=== PATIENT | female | born 1940 | race Caucasian/White ===

== ENCOUNTER 2018-08-13 09:18 | Emergency (ER) | payer MEDICARE, SELFPAY ==
[2018-08-13 09:26] VITALS: BP 159/75; PULSE 99; RESP 15; TEMP 36.4; O2SAT 100; BMI 28.8
--- NOTE | 2018-08-13 10:36 | DI.RAD.S_ITS ---
PROCEDURE: XR KNEE RT 3V INDICATIONS: pain TECHNIQUE: 3 views of the knee were acquired. COMPARISON: Former[facility], CR, XR HIP W PEL IF DONE RT 2V, 08/13/2018, 10:17. [facility], MR, KNEE WITHOUT CONTRAST, 06/21/2013, 8:40. [facility], CR, KNEE 3V LEFT, 06/13/2013, 14:20. FINDINGS: Bones: No fractures or dislocations. No suspicious bony lesions. There is mild medial femorotibial joint space narrowing seen, with associated remodeling changes including subchondral sclerosis and osteophyte formation along the jointline. On the sunrise view, there is moderate lateral patellofemoral joint space narrowing seen. Osteophyte formation can be seen along the margins of the patella. Soft tissues: No joint effusion. No suspicious soft tissue calcifications. IMPRESSION: Age-appropriate degenerative changes are seen, without an acute bony abnormality identified. Dictated by: Manjeet Ferris M.D. on 08/13/2018 at 9:56 Approved by: Manjeet Ferris M.D. on 08/13/2018 at 9:57
--- NOTE | 2018-08-13 10:36 | DI.RAD.S_ITS ---
PROCEDURE: XR HIP W PEL IF DONE RT 2V INDICATIONS: pain no inury TECHNIQUE: AP pelvis with lateral view(s) of the right hip(s). COMPARISON: [facility], CT, ABDOMEN/PELVIS WITH CONTRAST, 02/02/2016, 11:58. [facility], CR, PELVIS 1 OR 2 VIEWS, 05/03/2016, 9:30. [facility], CR, XR KNEE RT 3V, 08/13/2018, 10:17. FINDINGS: Bones: No fractures or dislocations. Pelvic ring appears intact. No suspicious bony lesions. There is moderate superior joint space narrowing seen of both hips, with associated remodeling changes with subchondral sclerosis and osteophyte formation. Age-appropriate lower lumbar spine degenerative changes are noted. Soft tissues: The visualized bowel gas pattern is normal. No suspicious soft tissue calcifications. IMPRESSION: Moderate degenerative change can be seen involving both hips. Dictated by: Manjeet Ferris M.D. on 08/13/2018 at 9:57 Approved by: Manjeet Ferris M.D. on 08/13/2018 at 9:59
--- NOTE | 2018-08-13 10:43 | ED.LOWEXIN ---
HPI - Extremity Injury (Lower) General Chief Complaint: Extremity Injury, Lower Stated Complaint: Right leg pain Time Seen by Provider: 08/13/18 09:41 Source: patient Mode of arrival: ambulatory Limitations: no limitations History of Present Illness HPI Narrative: Patient is a 78-year-old female who presents with sudden onset right knee pain. She was walking when she suddenly felt her knee had pain behind. She also has some referred pain in her hip she is unable to stand. She did not fall. She has no calf pain no shortness of breath. She has no recent traveling. She denies numbness or tingling. complaint: hip injury and knee injury Related Data Home Medications Medication Instructions Recorded Confirmed hydrocodone-acetaminophen 1 tab PO PRN PRN 08/13/18 08/13/18 levothyroxine 1 tab PO DAILY 08/13/18 08/13/18 Allergies Allergy/AdvReac Type Severity Reaction Status Date / Time naproxen [From ALEVE] Allergy Severe hives, Verified 08/13/18 09:26 throat swelling meperidine [From Demerol] Allergy Verified 08/13/18 09:26 Review of Systems Review of Systems All systems reviewed & are unremarkable except as noted in HPI and below Constitutional Denies chills, Denies fever(s), Denies lethargy and Denies weakness Cardiovascular Denies chest pain, Denies irregular heart rhythm, Denies lightheadedness, Denies palpitations, Denies dyspnea, Denies dyspnea on exertion and Denies orthopnea Respiratory Denies cough, Denies dyspnea, Denies dyspnea on exertion and Denies wheezing Gastrointestinal Gastrointestinal: Denies abdominal pain, Denies change in bowel habits, Denies diarrhea, Denies nausea and Denies vomiting Musculoskeletal Reports as per HPI and Denies tingling Integumentary/Breasts Denies pruritus, Denies erythema, Denies rash and Denies wounds Neurologic Denies tingling, Denies paresthesias and Denies weakness Endocrine Denies palpitations Allergic/Immunologic Denies wheezing Exam Initial Vital Signs Initial Vital Signs: Vital Signs Temperature 97.6 F 08/13/18 09:26 Pulse Rate 99 H 08/13/18 09:26 Respiratory Rate 15 08/13/18 09:26 Blood Pressure 159/75 H 08/13/18 09:26 Pulse Oximetry 100 08/13/18 09:26 GENERAL: Well-appearing, well-nourished and in no acute distress. HEENT: Head atraumatic,EOMI, pupils reactive CARDIOVASCULAR: Regular rate and rhythm without murmurs, rubs or gallops. RESPIRATORY: Breath sounds equal bilaterally, no wheezes rales or rhonchi. EXTREMITIES: Normal range of motion, no clubbing or edema. Neurovascularly intact Right knee minimal swelling stable exam slight pain in hip with internal and external rotation peripheral pulses intact no erythema neurovascularly intact NEUROLOGICAL: Alert and oriented x4.Normal gait and speech. SKIN: Warm, dry, no laceration, no petechiae, no rashes or lesions. Course Orders Ordered: ED Orders 08/13/18 10:36 XR hip w pel if done RT 2V Stat XR knee RT 3V Stat Vital Signs - 8 hr 08/13/18 09:26 08/13/18 11:59 Temperature 97.6 F Pulse Rate 99 H 88 Respiratory Rate 15 14 Blood Pressure 159/75 H 151/77 H Pulse Oximetry 100 98 MDM - Extremity Injury (Lower) Imaging Data hip XR: Radiologist's impression: PROCEDURE: XR HIP W PEL IF DONE RT 2V INDICATIONS: pain no inury TECHNIQUE: AP pelvis with lateral view(s) of the right hip(s). COMPARISON: [facility], CT, ABDOMEN/PELVIS WITH CONTRAST, 02/02/2016, 11:58. [facility], CR, PELVIS 1 OR 2 VIEWS, 05/03/2016, 9:30. [facility], CR, XR KNEE RT 3V, 08/13/2018, 10:17. FINDINGS: Bones: No fractures or dislocations. Pelvic ring appears intact. No suspicious bony lesions. There is moderate superior joint space narrowing seen of both hips, with associated remodeling changes with subchondral sclerosis and osteophyte formation. Age-appropriate lower lumbar spine degenerative changes are noted. Soft tissues: The visualized bowel gas pattern is normal. No suspicious soft tissue calcifications. IMPRESSION: Moderate degenerative change can be seen involving both hips. Dictated by: Manjeet Ferris M.D. on 08/13/2018 at 9:57 Knee XR: Radiologist's impression: PROCEDURE: XR KNEE RT 3V INDICATIONS: pain TECHNIQUE: 3 views of the knee were acquired. COMPARISON: [facility], CR, XR HIP W PEL IF DONE RT 2V, 08/13/2018, 10:17. [facility], MR, KNEE WITHOUT CONTRAST, 06/21/2013, 8:40. [facility], CR, KNEE 3V LEFT, 06/13/2013, 14:20. FINDINGS: Bones: No fractures or dislocations. No suspicious bony lesions. There is mild medial femorotibial joint space narrowing seen, with associated remodeling changes including subchondral sclerosis and osteophyte formation along the jointline. On the sunrise view, there is moderate lateral patellofemoral joint space narrowing seen. Osteophyte formation can be seen along the margins of the patella. Soft tissues: No joint effusion. No suspicious soft tissue calcifications. IMPRESSION: Age-appropriate degenerative changes are seen, without an acute bony abnormality identified. Dictated by: Manjeet Ferris M.D. on 08/13/2018 at 9:56 MDM Narrative Medical decision making narrative: Sudden onset of pain while walking likely a sprain. She is given knee brace which does help her ambulate. Discharge Plan Departure Patient Disposition: Home Clinical Impression: Right knee sprain Discharge Date/Time: 08/13/18 11:40 Interventions: ED Discharge Assessment Last Done: 08/13/18 11:59 Instructions: DI for Knee Sprain Activity Restrictions/Additional Instructions: *You have been diagnosed with right knee sprain *What to do: X-ray today are negative, wear brace as needed use a cane or crutches if needed for walking *Continue to take medications as directed Tylenol and/or Motrin as needed for pain *Follow up with your primary care provider in 2-3 days *Return to ER if you should have increased pain, numbness, tingling, inability to walk or any new, worsening or concerning symptoms Prescriptions: No Action hydrocodone-acetaminophen 5-325 mg tablet 1 tab PO PRN PRN (Reason: Pain, Moderate) RF: 0 levothyroxine 100 mcg tablet 1 tab PO DAILY RF: 0 Referrals: Fabrice Green MD [Primary Care Provider] -
[2018-08-13 11:59] VITALS: BP 151/77; PULSE 88; RESP 14; O2SAT 98
== END 2018-08-13 11:40 | disposition home or self-care (01) ==
PROVIDERS: Emergency Provider Emergency Medicine; Family Provider Family Medicine; PCP Family Medicine
DX: S83.91XA Sprain of unspecified site of right knee, initial encounter (principal); Y93.01 Activity, walking, marching and hiking
CPT/HCPCS: 73502; 73562; 99283

== ENCOUNTER → 2018-08-21 11:32 | Outpatient (CLI) | payer MEDICARE, SELFPAY ==
--- NOTE | 2018-08-21 | DI.MRI.S_ITS ---
PROCEDURE: MR KNEE RT WO CON INDICATIONS: PAIN IN RIGHT KNEE TECHNIQUE: Noncontrast sagittal PD fast spin echo and T2 fast spin echo with fat saturation, sagittal 3-D FLASH with fat saturation; coronal T1 spin echo and PD fast spin echo with fat saturation, and axial PD fast spin echo with fat saturation through the knee. COMPARISON: [facility], CR, XR KNEE RT 3V, 08/13/2018, 10:17. FINDINGS: Image quality: Diagnostic. Bones and joint: There is no acute fracture or dislocation. No suspicious osseous lesions are evident. The there is a small joint effusion. A moderate-sized Sevilla's cyst is identified, containing small interarticular joint bodies/debris. Mild to moderate degenerative changes of the knee are identified demonstrating small developing marginal osteophytes. There is moderate irregularity of the hyaline articular cartilage within the patellofemoral compartment but there is a degenerative/reactive marrow change. The hyaline articular cartilage within the medial and lateral tibiofemoral compartments is also noted to be heterogeneous, but intact. Cruciate ligaments: Anterior cruciate ligament is intact. The posterior cruciate ligament is also noted to be intact. Menisci: There is an oblique tear identified involving the body and posterior horn of the medial meniscus that extends into the inferior articular surface. The posterior meniscal root appears to be intact. There also is an oblique tear extending onto the inferior articular surface that involves the junction of the body and posterior horn of the medial meniscus. This transitions to a tear involving the free edge of the body of the medial meniscus and subsequently a probable oblique tear that involves the femoral articular surface to the anterior horn of the lateral meniscus. Medial structures: The medial collateral ligament is intact. The semimembranosus tendon insertion is intact. The imaged portions of the pes anserinus tendons are unremarkable. No significant fluid is contained within the pes anserinus bursa. Thickening and heterogeneity of the lateral patellofemoral ligament is present. Lateral structures: The popliteal tendon is intact. The lateral collateral ligament proper (fibular collateral ligament) and the proximal tibiofibular ligaments are intact. However, there may be partial thickness tearing involving the lateral collateral ligament. The distal aspect of the biceps femoris tendon and the iliotibial band are intact. The lateral patellofemoral ligament appears to be thickened. There is edema overlying this ligament. Anterior structures: The quadriceps and patellar tendons are intact. However, there is thickening and increased signal identified involving the lateral aspect of the proximal patellar tendon. Extensive subcutaneous edema overlying the anterior margin of the knee is resent with prepatellar edema noted. IMPRESSION: 1. Mild to moderate degenerative changes of the knee are most pronounced within the patellofemoral compartment. 2. Mild to moderate proximal patellar tendinopathy. Given positioning of the proximal patellar tendon, please correlate clinically for the possibility of lateral femoral condyle-patellar tendon friction syndrome. 3. Probable scarring of the medial and lateral patellofemoral ligaments. 4. Small to moderate-sized knee joint effusion with an associated Sevilla's cyst, containing intra-articular joint bodies. 5. Complex, nondisplaced tears involving the medial and lateral menisci. 6. Partial-thickness tearing involving the proximal lateral patellofemoral ligament. Dictated by: Braulio Hanley M.D. on 08/21/2018 at 15:01 Approved by: Braulio Hanley M.D. on 08/21/2018 at 15:12
== END ==
PROVIDERS: PCP Family Medicine; Visit Provider Orthopaedic Surgery
DX: S83.271A Complex tear of lateral meniscus, current injury, right knee, initial encounter (principal); S83.231A Complex tear of medial meniscus, current injury, right knee, initial encounter; M25.561 Pain in right knee; M17.11 Unilateral primary osteoarthritis, right knee; M25.461 Effusion, right knee; M71.21 Synovial cyst of popliteal space [Baker], right knee
CPT/HCPCS: 73721

== ENCOUNTER → 2019-04-04 11:12 | Oncology outpatient (ONC) | payer MEDICARE, SELFPAY ==
[2019-04-04 11:31] VITALS: BP 134/88; PULSE 83; RESP 18; TEMP 36.8; O2SAT 98
== END ==
LOC: ONC 11:14
PROVIDERS: PCP Family Medicine; Visit Provider Internal Medicine Hematology & Oncology
DX: Z08 Encounter for follow-up examination after completed treatment for malignant neoplasm (principal)

== ENCOUNTER → 2019-05-03 08:48 | Outpatient (CLI) | payer MEDICARE, SELFPAY ==
--- NOTE | 2019-05-03 | DI.MG.S_ITS ---
BILATERAL DIGITAL SCREENING MAMMOGRAM 3D/2D WITH CAD: 05/03/2019 CLINICAL: Routine screening. Family history of breast cancer. Comparison is made to exams dated: 04/12/2018 mammogram, 03/23/2018 mammogram, and 03/02/2017 mammogram - [facility]. The tissue of both breasts is heterogeneously dense. This may lower the sensitivity of mammography. Current study was also evaluated with a Computer Aided Detection (CAD) system. No significant masses, calcifications, or other findings are seen in either breast. There has been no significant interval change. IMPRESSION: NEGATIVE There is no mammographic evidence of malignancy. A 1 year screening mammogram is recommended. This exam was interpreted at Station ID: [id number]. NOTE: For mammograms, a report in lay terms will be sent to the patient. Approximately 15% of breast malignancies will not be visualized mammographically. In the management of a palpable breast mass, a negative mammogram must not discourage biopsy of a clinically suspicious lesion. Electronically Signed By: John turk/yony:05/03/2019 17:36:32 letter sent: Normal Exam ACR BI-RADS Category 1: Negative [id number]
== END ==
PROVIDERS: PCP Family Medicine; Visit Provider Family Medicine
DX: Z12.31 Encounter for screening mammogram for malignant neoplasm of breast (principal); Z80.3 Family history of malignant neoplasm of breast
CPT/HCPCS: 77063; 77067

== ENCOUNTER → 2019-07-11 06:35 | Outpatient (CLI) | payer MEDICARE, SELFPAY ==
--- NOTE | 2019-07-11 | DI.CT.S_ITS ---
PROCEDURE: CT ABDOMEN PELVIS WO/W CON INDICATIONS: HEMATURIA TECHNIQUE: Optional 5 mm thick noncontrast images acquired from the diaphragm to the symphysis pubis. After the administration of intravenous contrast, 5 mm thick images acquired from the diaphragm to the symphysis pubis after a 10-minute delay. 2 mm thick coronal and sagittal reformats were then performed of the kidneys and ureters. For radiation dose reduction, the following was used: automated exposure control, adjustment of mA and/or kV according to patient size. COMPARISON: CT abdomen and pelvis with contrast 02/02/2016. FINDINGS: Image quality: Excellent. Lung bases: Lung bases are clear. Heart size is normal. Urinary system: Both kidneys are normal in size, without hydronephrosis or nephrolithiasis on pre-contrast images. No perinephric fat stranding. There is normal bilateral renal enhancement. Small simple cyst at the superior pole the left kidney measuring 1.9 cm. Small left peripelvic cyst. Renal calyces appear normal in morphology when filled with contrast. Opacified portions of both ureters demonstrate normal caliber. Bladder wall thickness appears normal. Small calcifications in the superior aspect of the urinary bladder wall, (8/113), have increased in number. No filling defects seen. No calcified bladder stones. Other solid organs: Liver is normal in size and enhancement. Gallbladder is unremarkable. Biliary system is non dilated. Pancreas enhances normally. Spleen is mildly enlarged measuring 14.2 cm in craniocaudal length, previously 12.9 cm on 01/31/2016. A few punctate calcific granuloma in the spleen. No adrenal nodules. Peritoneum and bowel: Bowel loops demonstrate normal wall thickness and caliber. Mild colonic diverticulosis. No free fluid or air. Nodes and vessels: No retroperitoneal or mesenteric adenopathy by size criteria. Aorta and inferior vena cava are normal in size. Abdominal wall: No ventral hernias. Pelvis: No pathologic free pelvic fluid. No inguinal hernias or adenopathy. Bones: No suspicious bony lesions. No vertebral body compression fractures. IMPRESSION: 1. No suspicious renal mass. No upper urinary tract filling defect. 2. Increased number of calcifications in the superior aspect of the urinary bladder wall compared to 2016. No discrete mass identified. Further evaluation with cystoscopy should be considered. 3. No nephrolithiasis. Dictated by: Omero Agudelo M.D. on 07/11/2019 at 11:39 Approved by: Omero Agudelo M.D. on 07/11/2019 at 11:51
== END ==
PROVIDERS: Visit Provider Student in an Organized Health Care Education/Training Program
DX: R31.9 Hematuria, unspecified (principal)
CPT/HCPCS: 74170; Q9967

== ENCOUNTER 2019-09-18 16:51 | Emergency (ER) | payer MEDICARE, SELFPAY ==
[2019-09-18 17:00] VITALS: BP 177/81; PULSE 95; RESP 17; TEMP 36.9; O2SAT 98
--- NOTE | 2019-09-18 17:11 | DI.CT.S_ITS ---
PROCEDURE: CT HEAD/BRAIN WO CON INDICATIONS: headache, hypertension TECHNIQUE: Noncontrast 4.5 mm thick angled axial sections acquired from the foramen magnum to the vertex, with coronal and sagittal reformats. For radiation dose reduction, the following was used: automated exposure control, adjustment of mA and/or kV according to patient size. COMPARISON: None. FINDINGS: Image quality: Excellent. CSF spaces: Basal cisterns are patent. No extra-axial fluid collections. The ventricles are symmetric in size and shape. Brain: No intracranial bleeds or masses. There is cerebral volume loss for age, with resultant ventricular and sulcal prominence. There are periventricular and deep white matter chronic small vessel ischemic changes. Focal lacunar infarct in the left caudate head, bilateral thalami, and right caudal basal ganglia. There is intracranial internal carotid artery atherosclerosis. Skull and face: Calvarium and visualized facial bones appear intact, without suspicious lesions. Sinuses: Visualized sinuses and mastoids are clear. IMPRESSION: 1. No CT evidence of acute intracranial hemorrhage. 2. 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 Dictated by: Samantha Tomlinson M.D. on 09/18/2019 at 18:09 Approved by: Samantha Tomlinson M.D. on 09/18/2019 at 18:11
--- NOTE | 2019-09-18 18:35 | ED_ITS ---
HPI - General Adult General Chief complaint: Hypertension Stated complaint: SENT FOR BRAIN SCAN Time Seen by Provider: 09/18/19 18:05 Source: patient Mode of arrival: Ambulatory Limitations: no limitations History of Present Illness HPI narrative: 79-year-old female sent over from her primary doctor's office for a head CT. Patient states that for the past 4 days she has had a left-sided headache that goes from the top of her head down to the back of her head. States that it happens at night. It does appear to be somewhat positional as the patient states that it is when she turns her head that the symptoms come on. There is also some concern that the patient's blood pressure has been elevated over the past 4 days. Patient states she occasionally takes her blood pressure at home and the systolic blood pressure normally runs in the 130 range. Over the past 4 days it has been in the 160s to 170 range. She denies any chest pain or shortness of breath. She also describes a room spinning sensation. This also appears to be positional. Patient denies any ear pain or tinnitus or sinus congestion. She states that when she gets this ?dizziness? she does have some blurry vision that resolves. Related Data Home Medications Medication Instructions Recorded Confirmed hydrocodone-acetaminophen 1 tab PO PRN PRN 08/13/18 09/18/19 levothyroxine 1 tab PO DAILY 08/13/18 09/18/19 Previous Rx's Medication Instructions Recorded meclizine 25 mg PO TID PRN #14 tab 09/18/19 Allergies Allergy/AdvReac Type Severity Reaction Status Date / Time naproxen [From ALEVE] Allergy Severe hives, Verified 11/18/18 11:10 throat swelling meperidine [From Demerol] Allergy Verified 11/18/18 11:10 Review of Systems Constitutional Constitutional: Denies fever(s), Denies frequent falls and Reports headache(s) Eyes Eyes: Denies loss of vision Comments: Blurry vision when she has dizziness ENT Ears, Nose, Mouth, and Throat: Reports vertigo, Reports dizziness, Reports headache(s), Denies neck pain, Reports disequilibrium, Denies sinus pressure and Denies sore throat Cardiovascular Cardiovascular: Denies chest pain and Denies dyspnea Respiratory Respiratory: Denies cough and Denies dyspnea Gastrointestinal Gastrointestinal: Denies abdominal pain, Denies nausea and Denies vomiting Genitourinary Genitourinary: Denies dysuria Musculoskeletal Musculoskeletal: Denies abnormal gait, Denies myalgias, Denies arthralgias, Denies neck pain and Denies tingling Integumentary/Breasts Skin/Breast: Denies rash Neurologic Neurologic: Denies abnormal speech, Denies abnormal gait, Denies behavioral changes, Denies burning sensations, Denies confusion, Reports vertigo, Reports dizziness, Denies frequent falls, Reports headache(s), Denies focal weakness, Denies loss of vision, Denies tingling and Reports disequilibrium Psychiatric Psychiatric: Denies anxiety, Denies behavioral changes and Denies confusion Hematologic/Lymphatic Hematologic/Lymphatic: Denies easy bleeding and Denies easy bruising Patient History Medical History Hypothyroid (Acute) Social History Smoking Status: Former smoker alcohol intake frequency: 0-2 drinks per day Substance Use Type: does not use Exam Initial Vital Signs Initial Vital Signs: Vital Signs Temperature 98.4 F 09/18/19 17:00 Pulse Rate 95 H 09/18/19 17:00 Respiratory Rate 17 09/18/19 17:00 Blood Pressure 177/81 H 09/18/19 17:00 Pulse Oximetry 98 09/18/19 17:00 Const General: cooperative, comfortable, well developed and well groomed Orientation: alert, awake and oriented x3 HENMT Head: normal to inspection and normocephalic Ears: TM's normal bilaterally Nose: external nose normal Face and sinus: normal facial exam Eyes Pupils: PERRL EOM: EOM intact bilaterally Resp Effort & Inspection: normal respiratory effort Auscultation: clear to auscultation bilaterally Cardio Rate: regular rate Rhythm: regular rhythm GI Inspection: non-distended Palpation: soft and No firm Skin Lesions: no lesions Rashes: no rashes Neuro General: alert, awake and oriented x3 Cranial Nerves: CN's II-XI intact bilaterally Cognition: normal cognition Speech: speech normal Gait: normal gait Motor: muscle tone normal throughout Extrem General: normal to inspection and capillary refill normal Psych Appearance: grossly normal and well kempt Course Orders Ordered: ED Orders 09/18/19 17:11 CT head/brain wo con Stat Vital Signs Vital signs: Vital Signs - 8 hr 09/18/19 18:36 Pulse Rate 90 Respiratory Rate 19 Blood Pressure [Right Arm] 142/90 H Pulse Oximetry 97 Medical Decision Making Imaging Data CT scan - head: Radiologist's impression: [address] [address] [address] Scan Report Signed Patient: Angelita Amaya AMR#: [id number] : 2Acct:[id number] Age/Sex: 79 / FDate of Service: 09/18/19 Loc: ED Accession Number: [id number] Procedure: CT head/brain wo con Ordering Provider: Ana Schafer D.O. PROCEDURE: CT HEAD/BRAIN WO CON INDICATIONS: headache, hypertension TECHNIQUE: Noncontrast 4.5 mm thick angled axial sections acquired from the foramen magnum to the vertex, with coronal and sagittal reformats. For radiation dose reduction, the following was used: automated exposure control, adjustment of mA and/or kV according to patient size. COMPARISON: None. FINDINGS: Image quality: Excellent. CSF spaces: Basal cisterns are patent. No extra-axial fluid collections. The ventricles are symmetric in size and shape. Brain: No intracranial bleeds or masses. There is cerebral volume loss for age, with resultant ventricular and sulcal prominence. There are periventricular and deep white matter chronic small vessel ischemic changes. Focal lacunar infarct in the left caudate head, bilateral thalami, and right caudal basal ganglia. There is intracranial internal carotid artery atherosclerosis. Skull and face: Calvarium and visualized facial bones appear intact, without suspicious lesions. Sinuses: Visualized sinuses and mastoids are clear. IMPRESSION: 1. No CT evidence of acute intracranial hemorrhage. 2. 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 Dictated by: Samantha Tomlinson M.D. on 09/18/2019 at 18:09 Approved by: Samantha Tomlinson M.D. on 09/18/2019 at 18:11 ECG Data Attestation: I personally reviewed and interpreted this ECG as follows: Prior ECG tracings: not available for review Interpretation: Sinus rhythm Ventricular rate of 91 Left axis deviation Normal QRS Normal QTC No ST T wave changes MDM Narrative Medical decision making narrative: Patient is a normal neurologic exam. Her head CT shows no acute changes. EKG is a left axis deviation. She denies any chest pain or palpitations. I have low suspicion for intracranial hemorrhage given her symptoms. She does have what appears to be vertigo. She states that she can reproduce the symptoms by looking up into the right. She did that here in the emergency department. I do suspect that this is a peripheral vertigo given her history and physical exam. Will send home with symptom treatment for this. She is instructed to continue to take her blood pressure at home and to talk with her primary provider about the need for any medications. She was given return precautions. She expressed understanding and agreement with plan.. Discharge Plan Departure Patient Disposition: Home Clinical Impression: Vertigo Hypertension Qualifiers: Hypertension type: unspecified Qualified Code(s): I10 - Essential (primary) hypertension Headache Qualifiers: Headache type: unspecified Headache chronicity pattern: unspecified pattern Intractability: not intractable Qualified Code(s): R51 - Headache Discharge Date/Time: 09/18/19 18:46 Instructions: DI for High Blood Pressure, DI for Vertigo Activity Restrictions/Additional Instructions: I recommend that you start taking a antihistamine such as Claritin or Diandra or Zyrtec like we discussed. Use the meclizine as directed as needed. Continue to take your blood pressures at home like we discussed. Contact your primary virgilio storm for follow-up. Return to the emergency department for any new or worsening symptoms Prescriptions: New meclizine 25 mg tablet 25 mg PO TID PRN (Reason: dizziness) Qty: 14 RF: 0 No Action hydrocodone-acetaminophen 5-325 mg tablet 1 tab PO PRN PRN (Reason: Pain, Moderate) RF: 0 levothyroxine 100 mcg tablet 1 tab PO DAILY RF: 0 Referrals: Apple Stern MD [Primary Care Provider] -
[2019-09-18 18:36] VITALS: BP 142/90; PULSE 90; RESP 19; O2SAT 97
== END 2019-09-18 18:46 | disposition home or self-care (01) ==
PROVIDERS: Emergency Provider Emergency Medicine; Family Provider Student in an Organized Health Care Education/Training Program; PCP Student in an Organized Health Care Education/Training Program
DX: R42 Dizziness and giddiness (principal); I10 Essential (primary) hypertension; R51 Headache
CPT/HCPCS: 36415; 70450; 93005; 93010; 99282; 99284

== ENCOUNTER 2020-08-29 09:20 | Emergency (ER) | payer MEDICARE, SELFPAY ==
[2020-08-29 09:27] VITALS: BP 164/77; PULSE 90; RESP 14; TEMP 36.6; O2SAT 99
--- NOTE | 2020-08-29 10:06 | ED_ITS ---
HPI - Back Pain/Injury General Chief Complaint: Back Pain/Injury Stated Complaint: rt back/side pain Time Seen by Provider: 08/29/20 10:06 Source: patient and family Limitations: no limitations History of Present Illness HPI Narrative: This is a 72-year-old female comes emergency department with complaint of right flank and radiating towards the front she describes it more as upper right abdomen but on palpation it is more right lower abdomen. Patient also has pain radiating down her right leg for the last 3 weeks as well as numbness and tingling. She states she has had some back issues in the past but this feels like a different location and more internal. She has not had fevers, she has not had any vomiting but has felt nauseated today. She has not had any diarrhea constipation last several days but had loose stools about a week ago. She denies any frequency, dysuria urgency. She denies any weakness in her lower extremities. She denies any midline back pain. Patient states that she takes levothyroxine for her thyroid and rare occasional Vicodin for her back. She has had hysterectomy and states that they also removed her appendix at that time. Patient states that she has not had kidney stones in the past, she does not think that this is slowly her back pain. She is allergic to Aleve and states that she turns red all over. She denies any tobacco, occasional alcohol, no illicit. She is accompanied by her daughter today. Related Data Home Medications Medication Instructions Recorded Confirmed hydrocodone-acetaminophen 1 tab PO PRN PRN 08/13/18 08/29/20 levothyroxine 1 tab PO DAILY 08/13/18 09/18/19 ibuprofen 800 mg PO TID PRN 08/29/20 08/29/20 Previous Rx's Medication Instructions Recorded cyclobenzaprine 10 mg PO Q8H #14 tab 08/29/20 hydrocodone-acetaminophen [[place]] 1 tab PO Q6H PRN #10 tab 08/29/20 Allergies Allergy/AdvReac Type Severity Reaction Status Date / Time naproxen [From ALEVE] Allergy Severe hives, Verified 08/29/20 09:31 throat swelling meperidine [From Demerol] Allergy Verified 08/29/20 09:31 Review of Systems Review of Systems ROS Unobtainable: All systems reviewed & are unremarkable except as noted in HPI and below Patient History Medical History (Updated 08/29/20 @ 12:44 by Ana Schafer DO) Hypothyroid (Acute) Surgical History (Updated 08/29/20 @ 10:36 by Ana Schafer DO) H/O: hysterectomy (Acute) Social History Smoking Status: Former smoker Smoking Status: Former smoker alcohol intake frequency: 0-2 drinks per day Substance Use Type: does not use Exam Narrative Exam Narrative: GENERAL: Alert and oriented x three, obese, well-appearing female in moderate distress HEENT: Head normocephalic, atraumatic, EOMI, pupils reactive, face symmetric, moist mucous membranes NECK: Supple, full range of motion CARDIOVASCULAR: Regular rate and rhythm without murmurs, rubs or gallops. RESPIRATORY: Breath sounds equal bilaterally, no wheezes rales or rhonchi. ABDOMEN: Soft, positive for right lower quadrant tenderness. Patient is not p articularly tender in the right upper quadrant or left side. Normoactive bowel sounds all 4 quadrants. No guarding or rebound, rigidity, no mass : No CVA tenderness BACK: No cervical, thoracic or lumbar vertebral point tenderness. Patient has normal range of motion. Patient's gait is [antalgic/normal]. Rectal exam is deferred. Muscle strength is 5/5 in lower extremities, DTRs are 2/4 and lower extremities. Dorsalis pedis and tibialis pulses are 2+ and lower extremities. Sensation is intact in the lower extremities. EXTREMITIES: Normal range of motion, no clubbing or edema. Neurovascularly intact NEUROLOGICAL: Cranial nerves II through XII grossly intact. Moving all extremities SKIN: Warm, dry, no petechiae, no rashes or lesions. Initial Vital Signs Initial Vital Signs: Vital Signs Temperature 97.9 F 08/29/20 09:27 Pulse Rate 90 08/29/20 09:27 Respiratory Rate 14 08/29/20 09:27 Blood Pressure 164/77 H 08/29/20 09:27 Pulse Oximetry 99 08/29/20 09:27 Course Orders Ordered: ED Orders 08/29/20 10:33 CT abdomen pelvis w con Stat 08/29/20 10:40 Complete Blood Count AUTO DIFF Stat Comprehensive Metabolic Panel Stat Lipase Stat Discontinued Medications Sodium Chloride (Normal Saline 0.9%) 1,000 mls @ 1,000 mls/hr IV BOLUS ONE Stop: 08/29/20 11:32 Last Infusion: 08/29/20 12:57 Dose: 0 mls/hr Documented by: Admin: 08/29/20 10:43 Dose: 1,000 mls/hr Documented by: LEV Morphine Sulfate (Morphine) 4 mg IV NOW ONE Stop: 08/29/20 10:34 Last Admin: 08/29/20 10:43 Dose: 4 mg Documented by: LEV Morphine Sulfate (Morphine) 4 mg IV NOW ONE Stop: 08/29/20 12:39 Vital Signs Vital signs: Vital Signs - 8 hr 08/29/20 11:25 08/29/20 11:26 08/29/20 11:30 Pulse Rate 102 H 99 H 76 Blood Pressure 167/74 H 154/58 H Pulse Oximetry 98 99 99 08/29/20 12:57 Pulse Rate 95 H Blood Pressure 157/86 H Pulse Oximetry 97 MDM - Back Pain/Injury Lab Data Attestation: I reviewed the patient's lab results. Result diagrams: 08/29/20 10:40 08/29/20 10:40 Labs: Lab Results 08/29/20 08/29/20 Range/Units 10:40 10:40 WBC 8.5 (4.5-11.0) X10^3/uL RBC 4.42 (4.0-5.2) X10^6/uL Hgb 14.2 (12.0-16.0) g/dL Hct 41.3 (36-46) % MCV 93.4 (80-100) fL MCH 32.1 (26-34) PG MCHC 34.4 (30-36) % RDW 13.3 (11.6-14.8) % Plt Count 151 (150-400) X10^3/uL Neut % (Auto) 47.6 L (50-75) % Lymph % (Auto) 44.0 H (25-40) % [place] % (Auto) 6.6 (3-14) % Eos % (Auto) 1.4 L (2-4) % Baso % (Auto) 0.4 (0-2) % Neut # (Auto) 4000 (4607-0801) /uL Lymph # (Auto) 3700 (3793-1218) /uL [place] # (Auto) 600 (0-900) /uL Eos # (Auto) 100 (0-450) /uL Baso # (Auto) 0 (0-100) /uL Sodium 138 (137-145) mmol/L Potassium 4.2 (3.4-5.1) mmol/L Chloride 107 (98-107) mmol/L Carbon Dioxide 28 (22-32) mmol/L BUN 14 (7-17) mg/dL Creatinine 0.61 (0.52-1.04) mg/dL Estimated GFR > 60.0 (>60) mL/min BUN/Creatinine Ratio 23.0 H (6-22) Glucose 96 (80-110) mg/dL Calcium 9.2 (8.4-10.2) mg/dL Total Bilirubin 0.7 (0.2-1.3) mg/dL AST 23 (14-36) IU/L ALT 20 (<35) IU/L Alkaline Phosphatase 73 (38-126) U/L Total Protein 6.6 (6.3-8.2) g/dL Albumin 4.1 (3.5-5.0) g/dL Globulin 2.5 (1.7-4.1) g/dL Albumin/Globulin Ratio 1.6 (1.0-2.8) Lipase 89 (23-300) U/L Urine Dip Bedside Urine Glucose Negative Bedside Urine Bilirubin - Negative Bedside Urine Ketone - Negative Urine Specific [place] 1.010 Bedside Urine Occult Blood - Negative Bedside Urine pH 6.0 Bedside Urine Protein - Negative Bedside Urine Urobilinogen - Negative Bedside Urine Nitrite - Negative Bedside Urine Leukocytes - Negative Esterase Imaging Data CT scan - abdomen/pelvis: Radiologist's Impression: [place] [address] CT Scan Report Signed Patient: Angelita Amaya AMR#: [id number] : 2Acct:[id number] Age/Sex: 80 / FDate of Service: 08/29/20 Loc: ED Accession Number: [id number] Procedure: CT abdomen pelvis w con Ordering Provider: Ana Schafer D.O. PROCEDURE: CT ABDOMEN PELVIS W CON INDICATIONS: RLQ pain w/ palp, r flank/back pain down leg. TECHNIQUE: After the administration of intravenous contrast, 5 mm thick sections acquired from the diaphragm to the symphysis. 5 mm coronal and sagittal reformats were acquired. For radiation dose reduction, the following was used: automated exposure control, adjustment of mA and/or kV according to patient size. COMPARISON: [facility], CT, CT ABDOMEN PELVIS WO/W CON, 07/11/2019, 6:57. [facility], CT, ABDOMEN/PELVIS WITH CONTRAST, 02/02/2016, 11:58. FINDINGS: Image quality: Excellent. ABDOMEN: Lung bases: Lung bases are clear. Heart size is normal. Solid organs: Liver is normal in size and enhancement. Gallbladder wall is not thickened. Biliary system is non dilated. Pancreas enhances normally. The spleen is enlarged, measuring 14 cm AP and 15.6 cm craniocaudal. Calcified granulomas can be seen within the spleen. No adrenal nodules. Kidneys demonstrate normal size and enhancement, without hydronephrosis. A stable hyperdense cyst is seen involving the anterior superior aspect of the left kidney that measures 30 Hounsfield units and 1.5 cm. No hydronephrosis is seen. Peritoneum and bowel: Bowel loops demonstrate normal wall thickness and caliber. No free fluid or air. Colonic diverticulosis is seen, without findings of active diverticulitis. Nodes and vessels: No retroperitoneal or mesenteric adenopathy by size criteria. Aorta and inferior vena cava are normal in size. Miscellaneous: No ventral hernias. PELVIS: Genitourinary: Bladder wall thickness is normal. This patient is status post hysterectomy. No adnexal masses are seen. Miscellaneous: No inguinal hernias or adenopathy. Bones: No suspicious bony lesions. Generalized osteopenia is seen. No vertebral body compression fractures. Mild levoconvex scoliotic curvature is noted. Age- appropriate bony degenerative changes are seen. Minimal anterolisthesis is seen at L4-5. Prominent lumbar facet arthropathy is seen. IMPRESSION: No findings of hydronephrosis or pyelonephritis can be seen. There is a stable hyperdense cyst involving the anterior superior aspect of the left kidney. Lumbar spine degenerative changes are seen, including minimal L4-5 anterolisthesis. Incidental note is made of: Splenomegaly Prior granulomatous exposure. Hysterectomy Diverticulosis, without active diverticulitis Dictated by: Manjeet Ferris M.D. on 08/29/2020 at 10:36 Approved by: Manjeet Ferris M.D. on 08/29/2020 at 10:41 MDM Narrative Medical decision making narrative: Patient comes in with right flank right upper quadrant pain but on palpation is more right lower quadrant. Patient has also been having several weeks of back pain radiating down her leg but based on her physical exam findings I would also evaluate for more internal issues po tentially causing her pain. Labs imaging did not show a clear source of her pain I suspect this may be more related to her back after further discussion. Plan to give patient a short course of pain medication, muscle relaxant have her follow up with primary care and possibly interventional pain as she has stopped working because she has been so uncomfortable for the last several weeks. We did discuss reasons to return, red flag symptoms which patient has not described during her stay here today. Discharge Plan Departure Patient Disposition: Home Clinical Impression: Right low back pain, Right sided abdominal pain Discharge Date/Time: 08/29/20 12:57 Instructions: DI for Low Back Pain Activity Restrictions/Additional Instructions: Follow up with your primary care physician in the next to 5 days for recheck your labs and imaging shows a stable hyperdense cyst on the left kidney that is an unlikely source of your pain as well as some degenerative changes in your spine and an enlarged spleen. You may wish discuss pain management options such as Dr. Ferreira with your primary care. Take pain medications as prescribed, these medications can make you sleepy do not drive, perform hazardous activities or make any decisions while taking them. You may start with taking Tylenol up to a 1000 mg every 8 hours but the pain medications using prescribed have Tylenol seems calculate this into your total 24 hour dose. You should not take more than 3000 mg in a 24 hour period. Return to the ER for fevers, rapidly worsening abdominal or back pain loss of bowel or bladder control, new weakness, loss of sensation in your lower extremity or other new or concerning symptoms. Prescriptions: New hydrocodone-acetaminophen [[place]] 5-325 mg tablet 1 tab PO Q6H PRN (Reason: pain) Qty: 10 RF: 0 cyclobenzaprine 10 mg tablet 10 mg PO Q8H Qty: 14 RF: 0 No Action hydrocodone-acetaminophen 5-325 mg tablet 1 tab PO PRN PRN (Reason: Pain, Moderate) RF: 0 levothyroxine 100 mcg tablet 1 tab PO DAILY RF: 0 ibuprofen 800 mg tablet 800 mg PO TID PRN (Reason: pain / discomfort. ) RF: 0 Referrals: Vivek Putnam DO [Physician] - Apple Stern MD [Primary Care Provider] -
--- NOTE | 2020-08-29 10:33 | DI.CT.S_ITS ---
PROCEDURE: CT ABDOMEN PELVIS W CON INDICATIONS: RLQ pain w/ palp, r flank/back pain down leg. TECHNIQUE: After the administration of intravenous contrast, 5 mm thick sections acquired from the diaphragm to the symphysis. 5 mm coronal and sagittal reformats were acquired. For radiation dose reduction, the following was used: automated exposure control, adjustment of mA and/or kV according to patient size. COMPARISON: [facility], CT, CT ABDOMEN PELVIS WO/W CON, 07/11/2019, 6:57. [facility], CT, ABDOMEN/PELVIS WITH CONTRAST, 02/02/2016, 11:58. FINDINGS: Image quality: Excellent. ABDOMEN: Lung bases: Lung bases are clear. Heart size is normal. Solid organs: Liver is normal in size and enhancement. Gallbladder wall is not thickened. Biliary system is non dilated. Pancreas enhances normally. The spleen is enlarged, measuring 14 cm AP and 15.6 cm craniocaudal. Calcified granulomas can be seen within the spleen. No adrenal nodules. Kidneys demonstrate normal size and enhancement, without hydronephrosis. A stable hyperdense cyst is seen involving the anterior superior aspect of the left kidney that measures 30 Hounsfield units and 1.5 cm. No hydronephrosis is seen. Peritoneum and bowel: Bowel loops demonstrate normal wall thickness and caliber. No free fluid or air. Colonic diverticulosis is seen, without findings of active diverticulitis. Nodes and vessels: No retroperitoneal or mesenteric adenopathy by size criteria. Aorta and inferior vena cava are normal in size. Miscellaneous: No ventral hernias. PELVIS: Genitourinary: Bladder wall thickness is normal. This patient is status post hysterectomy. No adnexal masses are seen. Miscellaneous: No inguinal hernias or adenopathy. Bones: No suspicious bony lesions. Generalized osteopenia is seen. No vertebral body compression fractures. Mild levoconvex scoliotic curvature is noted. Age-appropriate bony degenerative changes are seen. Minimal anterolisthesis is seen at L4-5. Prominent lumbar facet arthropathy is seen. IMPRESSION: No findings of hydronephrosis or pyelonephritis can be seen. There is a stable hyperdense cyst involving the anterior superior aspect of the left kidney. Lumbar spine degenerative changes are seen, including minimal L4-5 anterolisthesis. Incidental note is made of: Splenomegaly Prior granulomatous exposure. Hysterectomy Diverticulosis, without active diverticulitis Dictated by: Manjeet Ferris M.D. on 08/29/2020 at 10:36 Approved by: Manjeet Ferris M.D. on 08/29/2020 at 10:41
[2020-08-29] MEDS: SODIUM CHLORIDE 0.9% 1,000 ML 1000 ML IV (10:43)
[2020-08-29] MEDS: MORPHINE 4 MG/ML INJ IV (10:43)
[2020-08-29 10:51] LABS: Add Manual Diff / Slide Review NO; Basophils Absolute Auto 0 /uL (0-100); Basophils Percent Auto 0.4 % (0-2); Eosinophils Absolute Auto 100 /uL (0-450); Eosinophils Percent Auto 1.4 % (2-4); Hematocrit 41.3 % (36-46); Hemoglobin 14.2 g/dL (12.0-16.0); Lymphocytes Absolute Auto 3700 /uL (1100-4500); Mean Corpuscular HGB Conc 34.4 % (30-36); Mean Corpuscular Hemoglobin 32.1 PG (26-34); Mean Corpuscular Volume 93.4 fL (80-100); Monocytes Absolute Auto 600 /uL (0-900); Monocytes Percent Auto 6.6 % (3-14); Neutrophils Absolute Auto 4000 /uL (1500-7000); Neutrophils Percent Auto 47.6 % (50-75); Platelet Count 151 X10^3/uL (150-400); Red Blood Cell Count 4.42 X10^6/uL (4.0-5.2); Red Cell Distribution Width 13.3 % (11.6-14.8); White Blood Cell Count 8.5 X10^3/uL (4.5-11.0)
[2020-08-29 11:01] LABS: Alanine Aminotransferase 20 IU/L (<35); Albumin 4.1 g/dL (3.5-5.0); Albumin Globulin Ratio 1.6 (1.0-2.8); Alkaline Phosphatase 73 U/L (38-126); Aspartate Aminotransferase 23 IU/L (14-36); Bilirubin Total 0.7 mg/dL (0.2-1.3); Blood Urea Nitrogen 14 mg/dL (7-17); Calcium 9.2 mg/dL (8.4-10.2); Carbon Dioxide 28 mmol/L (22-32); Chloride 107 mmol/L (98-107); Estimated Glomerular Filt Rate > 60.0 mL/min (>60); Globulin 2.5 g/dL (1.7-4.1); Glucose 96 mg/dL (80-110); HEMOLYSIS < 15 (0-50); Lipase 89 U/L (23-300); Potassium 4.2 mmol/L (3.4-5.1); Sodium 138 mmol/L (137-145); Total Protein 6.6 g/dL (6.3-8.2)
[2020-08-29 11:25] VITALS: PULSE 102; O2SAT 98
[2020-08-29 11:26] VITALS: BP 167/74; PULSE 99; O2SAT 99
[2020-08-29 11:30] VITALS: BP 154/58; PULSE 76; O2SAT 99
[2020-08-29 12:57] VITALS: BP 157/86; PULSE 95; O2SAT 97
== END 2020-08-29 12:57 | disposition home or self-care (01) ==
PROVIDERS: Emergency Provider Emergency Medicine; Family Provider Student in an Organized Health Care Education/Training Program; PCP Student in an Organized Health Care Education/Training Program
DX: M54.5 Low back pain (principal); R10.31 Right lower quadrant pain; R10.11 Right upper quadrant pain; R20.0 Anesthesia of skin
CPT/HCPCS: 36415; 74177; 80053; 81003; 83690; 85025; 96361; 96374; 99284; J2270; Q9967

== ENCOUNTER → 2021-04-02 08:18 | Outpatient (CLI) | payer MEDICARE, SELFPAY ==
--- NOTE | 2021-04-02 08:19 | DI.MG.S_ITS ---
BILATERAL DIGITAL SCREENING MAMMOGRAM 3D/2D WITH CAD: 04/02/2021 CLINICAL: Routine screening. Family history of breast cancer. Comparison is made to exams dated: 05/03/2019 mammogram - [facility], 03/23/2018 mammogram, and 03/02/2017 mammogram - [facility]. The tissue of both breasts is heterogeneously dense. This may lower the sensitivity of mammography. Current study was also evaluated with a Computer Aided Detection (CAD) system. There are benign post operative findings in both breasts. There are mole markers on both breasts. No significant masses, calcifications, or other findings are seen in either breast. There has been no significant interval change. IMPRESSION: BENIGN There is no mammographic evidence of malignancy. A 1 year screening mammogram is recommended. This exam was interpreted at Station ID: [id number]. NOTE: For mammograms, a report in lay terms will be sent to the patient. Approximately 15% of breast malignancies will not be visualized mammographically. In the management of a palpable breast mass, a negative mammogram must not discourage biopsy of a clinically suspicious lesion. Electronically Signed By: Martin Blanca acr/penrad:04/02/2021 08:54:21 letter sent: Normal Exam ACR BI-RADS Category 2: Benign Finding(s) 3342F
== END ==
PROVIDERS: Family Provider Student in an Organized Health Care Education/Training Program; PCP Student in an Organized Health Care Education/Training Program; Referring Provider Student in an Organized Health Care Education/Training Program; Visit Provider Student in an Organized Health Care Education/Training Program
DX: Z12.31 Encounter for screening mammogram for malignant neoplasm of breast (principal); Z80.3 Family history of malignant neoplasm of breast
CPT/HCPCS: 77063; 77067

== ENCOUNTER → 2022-03-07 09:42 | Outpatient (CLI) | payer MEDICARE, SELFPAY ==
--- NOTE | 2022-03-07 | DI.MRI.S_ITS ---
PROCEDURE: MR BRAIN (IAC) WWO CON INDICATIONS: Dizziness and giddiness TECHNIQUE: Noncontrast sagittal T1 spin echo, axial FLAIR, axial gradient echo, axial diffusion and ADC through the brain. Axial thin-slice 3D CISS, coronal TruFISP, axial T1 spin echo with fat saturation through the internal auditory canals. After the administration of contrast, thin slice axial and coronal T1 spin echo with fat saturation through the internal auditory canals, and axial T1 spin echo with fat saturation through the brain. COMPARISON: CT, CT HEAD/BRAIN WO CON, 09/18/2019, 17:34. FINDINGS: Image quality: Degraded by patient motion artifact. Cerebellopontine angles: No cerebellopontine angle masses. Inner ear structures appear normally formed. No suspicious enhancement in the internal auditory canal or along the course of the 7th cranial nerve. CSF spaces: Ventricles are normal in size and shape. No extra-axial fluid collections. Basal cisterns are patent. Brain: No intracranial bleeds or mass effects. Watson-white matter interface is intact. No abnormal intracranial enhancement. Diffusion weighted images demonstrate no acute ischemic insults. 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 Brainstem appears normal. Normal intravascular flow voids are present. Dural sinuses demonstrate normal postcontrast enhancement. Skull and face: Calvarial marrow signal is normal. Orbits appear normal. Sinuses: Sinuses are clear. Small volume of fluid noted in the dependent portion of the mastoid air cells bilaterally, right greater than left. IMPRESSION: 1. No acute intracranial disease process. 2. No evidence of vestibular schwannoma. 3. No abnormal intracranial mass or mass effect. 4. No suspicious postcontrast enhancement. 5. Mild, diffuse cerebral volume loss. 6. Small, chronic left bangura radiata/left caudate body lacunar infarct. 7. Fluid in the mastoid air cells. Recommend correlation with physical findings to differentiate serous fluid from an inflammatory process. Dictated by: Emily Degroot MD, PhD on 03/07/2022 at 11:02 Approved by: Emily Degroot MD, PhD on 03/07/2022 at 11:07
== END ==
PROVIDERS: Family Provider Student in an Organized Health Care Education/Training Program; PCP Family Medicine; Referring Provider Psychiatry & Neurology Neurology; Visit Provider Psychiatry & Neurology Neurology
DX: I63.81 Other cerebral infarction due to occlusion or stenosis of small artery (principal); R42 Dizziness and giddiness
CPT/HCPCS: 70553

== ENCOUNTER → 2022-03-10 07:50 | Outpatient (CLI) | payer MEDICARE, SELFPAY ==
--- NOTE | 2022-03-10 | DI.ECHO.S_ITS ---
[place] [facility]---------+ [facility] +---------+ : : [address] : : : : [id number] : : : : Phone: [phone] Echocardiogram Report + + :Name: MADDIE ISLAS Study Date: 03/10/2022 Height: 66 in : :[facility] ReadingLocation: Weight: 202 lb : : Gender: Female BSA: 2.0 m2 : :: 1940 Age: 81 yrs BP: 167/78 mmHg: :Reason For Study: Hypertension : :Ordering Physician: ENRIKE, : :CHENG Performed By: William Mcdonald : :Referring: CHENG CALVERT : + + Interpretation Summary The ejection fraction is estimated to be 60-65%. Diastolic parameters suggest probable normal left ventricular diastolic function and normal filling pressures. The right ventricle is normal in size and function. No significant valvular abnormalities. PASP is approximately 28-33 mmHg. Procedure: A two-dimensional transthoracic echocardiogram with color flow and Doppler was performed. The study quality was technically adequate. There is no prior echocardiogram noted for this patient. Left Ventricle: The left ventricle is normal in size and wall thickness. Left ventricular systolic function is normal. The ejection fraction is estimated to be 60-65%. There are no focal wall motion abnormalities. Diastolic parameters suggest probable normal left ventricular diastolic function and normal filling pressures. Right Ventricle: The right ventricle is normal in size and function. Atria: Both atria are normal in size. The interatrial septum grossly appears intact with no obvious evidence for an atrial septal defect. Mitral Valve: There is mild mitral annular calcification. There is no mitral regurgitation noted. Aortic Valve: The aortic valve is trileaflet. The aortic valve is mildly calcified. There is no aortic valve stenosis. No aortic regurgitation is present. Tricuspid Valve: The tricuspid valve is normal in structure and function. There is trace tricuspid regurgitation. PASP is approximately 28-33 mmHg. Pulmonic Valve: The pulmonic valve is not well seen, but is grossly normal. There is no pulmonic valvular regurgitation. Great Vessels: The aortic root is normal size. The dimensions of the ascending aorta are normal. The IVC is of normal diameter and collapses greater than 50% with a sniff. This suggests a low right atrial pressure of 3 mm Hg. Pericardium/ Pleura There is no pericardial effusion. There is a large left- sided pleural effusion. MMode/2D Measurements & Calculations LVIDd: 4.4 cm LVOT diam: 2.0 cm LVIDs: 2.8 cm Ao root diam: 2.8 cm FS: 36.4 % asc Aorta Diam: 3.3 cm IVSd: 0.90 cm LVPWd: 0.70 cm LV siddiqui. diameter/BSA (cm/m^2): 2.2 LV sys. diameter/BSA (cm/m^2): 1.4 LA dimension: 3.7 cm RA long axis: 3.9 cm LA A2 area: 13.0 cm2 LA A4 area: 11.3 cm2 LA length (vol): 4.9 cm LA vol: 25.3 ml LA vol index: 12.6 ml/m2 TAPSE_phl: 2.4 cm Doppler Measurements & Calculations Ao V2 max: 149.0 cm/sec LVOT Max Mani: 127.0 cm/sec Ao V2 mean: 111.0 cm/sec LV V1 max P.5 mmHg Ao max P.0 mmHg LV V1 VTI: 24.5 cm Ao mean P.0 mmHg JUN(I,D): 2.5 cm2 Ao V2 VTI: 31.3 cm JUN(V,D): 2.7 cm2 sev ratio: 0.78 JUN indexed to BSA (cm^2/m^2): 1.2 MV E max mani: 79.3 cm/sec TR max mani: 252.0 cm/sec MV A max mani: 108.0 cm/sec TR max P.4 mmHg MV E/A: 0.73 Med Peak E' Mani: 9.6 cm/sec E/E' med: 8.3 Lat Peak E' Mani: 9.1 cm/sec E/E' lat: 8.7 E/e' average: 8.5 MV dec time: 0.24 sec SV(LVOT): 77.0 ml AV VR_phl: 0.85 JUN(VTI)/BSA_phl: 1.2 MV P1/2t-pr_phl: 72.0 msec Reading Physician:02:45 PM
== END ==
PROVIDERS: Family Provider Student in an Organized Health Care Education/Training Program; PCP Family Medicine; Referring Provider Family Medicine; Visit Provider Student in an Organized Health Care Education/Training Program
DX: E78.5 Hyperlipidemia, unspecified (principal); I10 Essential (primary) hypertension
CPT/HCPCS: 93306

== ENCOUNTER 2022-04-18 17:10 | Inpatient (IN) | payer MEDICARE, SELFPAY ==
[2022-04-18] VITALS (11 sets, daily range): BP systolic 128–175; BP diastolic 59–73; PULSE 61–68; RESP 17–22; TEMP 36.3–36.7; O2SAT 93–97; BMI 29.0
--- NOTE | 2022-04-18 17:50 | DI.RAD.S_ITS ---
PROCEDURE: XR CHEST 1V INDICATIONS: Shortness of breath TECHNIQUE: One view of the chest was acquired. COMPARISON: None. FINDINGS: Surgical changes and devices: None. Lungs and pleura: Bilateral pleural effusions, moderate on the left and small on the right. Mildly increased interstitial markings in both lungs with a central/perihilar predominance. Mild cephalization of pulmonary vasculature. Mediastinum: Mediastinal contours appear normal. Heart size is normal. Bones and chest wall: No suspicious bony lesions. Overlying soft tissues appear unremarkable. IMPRESSION: Bilateral pleural effusions (moderate on left and small on right), coupled with findings of interstitial edema and cephalization of pulmonary vasculature. Findings suggest moderate to severe pulmonary edema. Dictated by: Shaheed Fuentes M.D. on 04/18/2022 at 18:09 Approved by: Shaheed Fuentes M.D. on 04/18/2022 at 18:10
--- NOTE | 2022-04-18 18:09 | ED.SOB ---
HPI - SOB/Dyspnea General Chief Complaint: Shortness of Breath/Dyspnea Stated Complaint: CHF, [place] Admitted to get Water Off Her Time Seen by Provider: 04/18/22 18:09 Source: patient and family Mode of arrival: Wheelchair History of Present Illness HPI Narrative: 82F with history of CHF on torsemide 40 mg daily presents with chief complaint of increasing shortness of breath and swelling of her lower extremities over the past few days. She was sent by her PCP for evaluation and probable admission for CHF exacerbation. She has been gradually worsening over the past few days and admits to exertional dyspnea and orthopnea. She has had swelling in both of her lower extremities and though she does not weigh herself it is likely she has gained a few lb. She has occasional very brief episodes of chest pain but largely free of other symptoms such as dizziness or lightheadedness. She states that minimal exertion makes her significantly short of breath and takes her a bit of time to bounce back. She had been on torsemide for the past week or so. Change in diet or medication change Related Data Home Medications Medication Instructions Recorded Confirmed levothyroxine 100 mcg tablet 1 tab PO DAILY 08/13/18 04/18/22 acetaminophen 325 mg capsule 650 mg PO Q4H PRN 04/18/22 04/18/22 (Tylenol) potassium chloride 20 mEq 20 meq PO BID 04/18/22 04/18/22 tablet,extended release(part/cryst) propranolol 20 mg tablet 20 mg PO BID 04/18/22 04/18/22 torsemide 20 mg tablet 20 mg PO DAILY 04/18/22 04/18/22 Allergies Allergy/AdvReac Type Severity Reaction Status Date / Time naproxen [From ALEVE] Allergy Severe hives, Verified 04/18/22 17:49 throat swelling meperidine [From Demerol] Allergy Verified 04/18/22 17:49 Review of Systems Review of Systems Narrative: GENERAL: Denies chills, fatigue, malaise, fever, sweats. HEENT: Denies sinus pain, ear pain, sore throat, difficulty swallowing, dizziness. RESPIRATORY: See HPI CARDIOVASCULAR: See HPI GASTROINTESTINAL: Denies nausea, vomiting, abdominal pain, diarrhea, constipation, melena. : Denies dysuria, frequency, incontinence, hematuria, urinary retention. MUSCULOSKELETAL: denies weakness, joint pain, or bony pain SKIN: Denies rash, skin lesions, or other NEUROLOGIC: Denies weakness, headache, numbness, change in speech, confusion, seizures, incoordination. PSYCHIATRIC: No concerning psychosocial issues. 12 point review of systems is negative except for those stated above Patient History Medical History Hypothyroid Surgical History H/O: hysterectomy Social History household members: family Smoking Status: Former smoker alcohol intake: current Smoking Status: Former smoker alcohol intake frequency: 0-2 drinks per day Substance Use Type: does not use Exam Narrative Exam Narrative: GENERAL: [82] year old patient appears stated age. Well-developed patient, in mild distress. HEAD: Atraumatic. Normocephalic. EYES: Pupils equal round and reactive. Extraocular motions intact. No scleral icterus. No injection or drainage. ENT: Nose without bleeding, purulent drainage. Throat without erythema, tonsillar hypertrophy or exudate. Airway patent. NECK: Trachea midline. Non tender CARDIOVASCULAR: Regular rate and rhythm without murmurs, gallops, or rubs. RESPIRATORY: Crackles bilaterally with decreased sounds in bilateral bases, no rhonchi or wheeze GASTROINTESTINAL: Abdomen soft, non-tender, nondistended. EXTREMITIES: 2+ pitting edema bilateral lower extremities BACK: Nontender without deformity or crepitance. No flank tenderness. NEURO: AOx3. SKIN: No rash or erythema of visible areas Initial Vital Signs Initial Vital Signs: Vital Signs Temperature 97.4 F L 04/18/22 17:47 Pulse Rate 65 04/18/22 17:47 Respiratory Rate 17 04/18/22 17:47 Blood Pressure 143/66 H 04/18/22 17:47 Pulse Oximetry 95 04/18/22 17:47 Course Orders Ordered: ED Orders 04/18/22 17:49 EKG-12 Lead Stat RT Consult Eval and Treat Now 04/18/22 17:50 XR chest 1V Stat 04/18/22 18:03 Complete Blood Count AUTO DIFF Stat Comprehensive Metabolic Panel Stat Lactate (Lactic Acid) Stat NT-proBNP (BNP-Adult 18+) Stat Prothrombin Time INR Stat Troponin & CK Cardiac Panel Stat 04/18/22 19:06 EKG-12 Lead Stat 04/18/22 19:35 COVID19 -Nasal RAPID/Pre-Proc Stat 04/18/22 19:48 Blood Culture Stat Acetaminophen (Acetaminophen 325 Mg Tablet) 650 mg PO Q6HR DAISY Last Admin: 04/18/22 23:33 Dose: 650 mg Documented by: GYPSY Enoxaparin Sodium (Enoxaparin 40 Mg/0.4 Ml Syringe) 40 mg SUBCUT DAILY DAISY Levothyroxine Sodium (Levothyroxine 100 Mcg Tablet) 100 mcg PO DAILY DAISY Magnesium Hydroxide (Magnesium Hydroxide 30 Ml Udc) 30 ml PO DAILY PRN PRN Reason: Constipation Naloxone HCl (Naloxone 0.4 Mg/Ml Vial) 0.2 mg IV Q2MIN PRN PRN Reason: Opiate Reversal Ondansetron HCl (Ondansetron 4 Mg/2 Ml Inj) 4 mg IV Q8HR PRN PRN Reason: Nausea And Vomiting Discontinued Medications Furosemide (Furosemide 40 Mg/4 Ml Vial) 40 mg IV NOW ONE Stop: 04/18/22 19:54 Last Admin: 04/18/22 20:22 Dose: 40 mg Documented by: MARYLOU Ceftriaxone Sodium 2,000 mg/ (Sodium Chloride) 100 mls @ 200 mls/hr IV NOW ONE Stop: 04/18/22 20:03 Last Infusion: 04/18/22 21:12 Dose: 0 mls/hr Documented by: Admin: 04/18/22 20:22 Dose: 200 mls/hr Documented by: MARYLOU Vital Signs Vital signs: Vital Signs - 8 hr 04/18/22 17:47 04/18/22 18:32 04/18/22 18:33 Temperature 97.4 F L Pulse Rate 65 61 63 Respiratory Rate 17 Blood Pressure 143/66 H 175/73 H Pulse Oximetry 95 97 96 04/18/22 19:00 04/18/22 19:01 04/18/22 19:30 Temperature Pulse Rate 68 66 67 Respiratory Rate Blood Pressure 142/65 H Pulse Oximetry 95 95 94 04/18/22 19:31 04/18/22 20:00 Temperature Pulse Rate 62 63 Respiratory Rate Blood Pressure 128/59 L 135/62 Pulse Oximetry 93 93 MDM - SOB/Dyspnea Lab Data Result diagrams: 04/18/22 18:03 04/18/22 18:03 Labs: Lab Results 04/18/22 04/18/22 04/18/22 Range/Units 18:03 18:03 18:03 WBC 32.5 H* (4.5-11.0) X10^3/uL RBC 3.96 L (4.0-5.2) X10^6/uL Hgb 14.6 (12.0-16.0) g/dL Hct 42.1 (36-46) % MCV 106.4 H (80-100) fL MCH 36.8 H (26-34) PG MCHC 34.6 (30-36) % RDW 17.0 H (11.6-14.8) % Plt Count 92 L (150-400) X10^3/uL Neut % (Auto) Not Reportable Lymph % (Auto) Not Reportable [place] % (Auto) Not Reportable Eos % (Auto) Not Reportable Baso % (Auto) Not Reportable Lymph # (Auto) Not Reportable [place] # (Auto) Not Reportable Baso # (Auto) Not Reportable Total Counted 100 Seg Neutrophils % 13.0 L (38-70) % Lymphocytes % (Manual) 86.0 H (25-45) % Monocytes % (Manual) 1.0 L (2-11) % Neutrophils # (Manual) 4225 (9962-9811) /uL RBC Morphology See below Anisocytosis 1+ H Macrocytosis 1+ H PT (10.1-12.7) SECONDS INR (0.9-1.3) Sodium 135 L (137-145) mmol/L Potassium 3.8 (3.4-5.1) mmol/L Chloride 100 (98-107) mmol/L Carbon Dioxide 30 (22-32) mmol/L BUN 18 H (7-17) mg/dL Creatinine 1.13 H (0.52-1.04) mg/dL Estimated GFR 49 L (>60) mL/min BUN/Creatinine Ratio 15.9 (6-22) Glucose 104 (80-110) mg/dL Lactate 1.6 (0.7-2.1) mmol/L Calcium 8.9 (8.4-10.2) mg/dL Total Bilirubin 5.2 H (0.2-1.3) mg/dL AST 103 H (14-36) IU/L ALT 35 H (<35) IU/L Alkaline Phosphatase 91 (38-126) U/L Total Creatine Kinase (30-135) U/L CK-MB (CK-2) CK-MB (CK-2) Rel Index Troponin I (0.01-0.034) ng/mL NT-Pro-B Natriuret Pep (<450) pg/mL Total Protein 6.0 L (6.3-8.2) g/dL Albumin 3.1 L (3.5-5.0) g/dL Globulin 2.9 (1.7-4.1) g/dL Albumin/Globulin Ratio 1.1 (1.0-2.8) SARS-CoV-2 (PCR) (Negative) 04/18/22 04/18/22 04/18/22 Range/Units 18:03 18:03 19:35 WBC (4.5-11.0) X10^3/uL RBC (4.0-5.2) X10^6/uL Hgb (12.0-16.0) g/dL Hct (36-46) % MCV (80-100) fL MCH (26-34) PG MCHC (30-36) % RDW (11.6-14.8) % Plt Count (150-400) X10^3/uL Neut % (Auto) Lymph % (Auto) [place] % (Auto) Eos % (Auto) Baso % (Auto) Lymph # (Auto) [place] # (Auto) Baso # (Auto) Total Counted Seg Neutrophils % (38-70) % Lymphocytes % (Manual) (25-45) % Monocytes % (Manual) (2-11) % Neutrophils # (Manual) (5941-6684) /uL RBC Morphology Anisocytosis Macrocytosis PT 18.5 H (10.1-12.7) SECONDS INR 1.6 H (0.9-1.3) Sodium (137-145) mmol/L Potassium (3.4-5.1) mmol/L Chloride (98-107) mmol/L Carbon Dioxide (22-32) mmol/L BUN (7-17) mg/dL Creatinine (0.52-1.04) mg/dL Estimated GFR (>60) mL/min BUN/Creatinine Ratio (6-22) Glucose (80-110) mg/dL Lactate (0.7-2.1) mmol/L Calcium (8.4-10.2) mg/dL Total Bilirubin (0.2-1.3) mg/dL AST (14-36) IU/L ALT (<35) IU/L Alkaline Phosphatase (38-126) U/L Total Creatine Kinase 34 (30-135) U/L CK-MB (CK-2) TNP CK-MB (CK-2) Rel Index TNP Troponin I < 0.012 (0.01-0.034) ng/mL NT-Pro-B Natriuret Pep 1230 H (<450) pg/mL Total Protein (6.3-8.2) g/dL Albumin (3.5-5.0) g/dL Globulin (1.7-4.1) g/dL Albumin/Globulin Ratio (1.0-2.8) SARS-CoV-2 (PCR) Negative (Negative) Discharge Plan Departure Patient Disposition: Admitted As Inpatient Clinical Impression: Acute exacerbation of CHF (congestive heart failure), Leukocytosis Admit Date/Time: 04/18/22 20:12 Admit Provider: Vivek Castellano
[2022-04-18 18:15] LABS: Hematocrit 42.1 % (36-46); Hemoglobin 14.6 g/dL (12.0-16.0); Mean Corpuscular HGB Conc 34.6 % (30-36); Mean Corpuscular Hemoglobin 36.8 PG (26-34); Mean Corpuscular Volume 106.4 fL (80-100); Platelet Count 92 X10^3/uL (150-400); Red Blood Cell Count 3.96 X10^6/uL (4.0-5.2)
[2022-04-18 18:16] LABS: Add Manual Diff / Slide Review YES; White Blood Cell Count 32.5 X10^3/uL (4.5-11.0)
[2022-04-18 18:21] LABS: INR 1.6 (0.9-1.3); Prothrombin Time 18.5 SECONDS (10.1-12.7)
[2022-04-18 18:24] LABS: Lactate (Lactic Acid) 1.6 mmol/L (0.7-2.1)
[2022-04-18 18:25] LABS: Alanine Aminotransferase 35 IU/L (<35); Albumin 3.1 g/dL (3.5-5.0); Albumin Globulin Ratio 1.1 (1.0-2.8); Alkaline Phosphatase 91 U/L (38-126); Aspartate Aminotransferase 103 IU/L (14-36); BUN Creatinine Ratio 15.9 (6-22); Bilirubin Total 5.2 mg/dL (0.2-1.3); Blood Urea Nitrogen 18 mg/dL (7-17); Calcium 8.9 mg/dL (8.4-10.2); Carbon Dioxide 30 mmol/L (22-32); Chloride 100 mmol/L (98-107); Estimated Glomerular Filt Rate 49 mL/min (>60); Globulin 2.9 g/dL (1.7-4.1); Glucose 104 mg/dL (80-110); HEMOLYSIS < 15 (0-50); Potassium 3.8 mmol/L (3.4-5.1); Sodium 135 mmol/L (137-145)
[2022-04-18 18:26] LABS: Creatine Kinase 34 U/L (30-135)
[2022-04-18 18:37] LABS: NT-proBNP (BNP-Adult 18+) 1230 pg/mL (<450); Neutrophils Absolute Manual 4225 /uL (3000-5900); Total Cells Counted 100; Troponin I < 0.012 ng/mL (0.01-0.034)
[2022-04-18 18:38] LABS: Anisocytosis 1+; Macrocytosis 1+
[2022-04-18 20:05] LABS: COVID19 -Nasal RAPID Negative (Negative)
[2022-04-18] MEDS: FUROSEMIDE 40 MG/4 ML VIAL IV (20:22)
[2022-04-18] MEDS: cefTRIAXone 2,000 MG in SODIUM CHLORIDE 0.9% 100 ML 200 MG IV (20:22)
--- NOTE | 2022-04-18 21:17 | PM.HP.1 ---
History of Present Illness History of Present Illness Date Patient Seen: 04/18/22 Time Patient Seen: 21:17 Date of Onset of Symptoms: 04/14/22 Chief complaint: CHF, [place] Admitted to get Water Off Her Narrative: Patient is an 82-year-old with history of congestive heart failure who presents with shortness of breath and swelling in her lower extremities over the past few days. Combination of history from daughter and patient who is a poor historian. States that she has had significant increase in her weight and her abdomen is been causing her problems breathing. She denies any abdominal pain. Apparently she has had a history of increasing shortness of breath which was apparently is been a problem recently. Daughter feels as if all of this has been in her abdomen and that the doctor felt like she could get the weight off her abdomen. There has been no other changes. She has had no nausea or vomiting no fevers or chills. No cough. No urinary complaints. No other significant issue or problem. She has not had any headaches visual symptoms lightheadedness dizziness. She finds that if she does anything she gets short of breath very quickly. And hard for her to catch up. No other significant change or complaint. Prior medical history is significant for hypothyroidism history melanoma malignant diagnosed in 01/28, onychomycosis Past surgical history malignant melanoma removal from face, right knee injection, hysterectomy with oophorectomy Habits history of smoking, no alcohol, Family history not significant Patient History Medical History Hypothyroid Surgical History H/O: hysterectomy Family & Social History Safety & Behavioral: Feels Safe in Current Yes Environment Been Physically Hurt or No Threatened By a Person Tobacco & Substance use: Smoking Status Former smoker alcohol intake frequency 0-2 drinks per day Substance Use Type does not use Meds Home Medications and Allergies Home Medications Medication Instructions Recorded Confirmed Type hydrocodone 5 mg-acetaminophen 325 1 tab PO PRN PRN 08/13/18 08/29/20 History mg tablet levothyroxine 100 mcg tablet 1 tab PO DAILY 08/13/18 09/18/19 History cyclobenzaprine 10 mg tablet 10 mg PO Q8H #14 tab 08/29/20 Rx hydrocodone 5 mg-acetaminophen 325 1 tab PO Q6H PRN #10 tab 10/17/20 Rx mg tablet ([place]) ibuprofen 800 mg tablet 800 mg PO TID PRN 08/29/20 08/29/20 History Allergies Allergy/AdvReac Type Severity Reaction Status Date / Time naproxen [From ALEVE] Allergy Severe hives, Verified 04/18/22 17:49 throat swelling meperidine [From Demerol] Allergy Verified 04/18/22 17:49 Review of Systems Review of Systems Narrative: See above Exam Vital Signs (past 8 hours): - 04/18/22 17:47 Temperature 97.4 F L Pulse Rate 65 Respiratory Rate 17 Blood Pressure 143/66 H Pulse Oximetry 95 Oxygen Delivery Method Room Air Narrative Exam Narrative: Alert fatigued-appearing female elderly in no acute distress Mucous membranes moist. Neck supple without adenopathy JVD or bruits. Lungs with mild crackles at the base. No retractions. No rhonchi. Heart distant regular rate and rhythm without murmurs clicks rubs or gallops abdomen is mildly distended soft nontender do not definitively feel was significantly increase in her liver or other change. Extremities with 2+ edema. Neurologic exam nonfocal Objective Labs Result Diagrams: 04/18/22 18:03 04/18/22 18:03 Labs: Laboratory Results - last 24 hr 04/18/22 04/18/22 04/18/22 18:03 18:03 18:03 WBC 32.5 H* RBC 3.96 L Hgb 14.6 Hct 42.1 MCV 106.4 H MCH 36.8 H MCHC 34.6 RDW 17.0 H Plt Count 92 L Neut % (Auto) Not Reportable Lymph % (Auto) Not Reportable [place] % (Auto) Not Reportable Eos % (Auto) Not Reportable Baso % (Auto) Not Reportable Lymph # (Auto) Not Reportable [place] # (Auto) Not Reportable Baso # (Auto) Not Reportable Total Counted 100 Seg Neutrophils % 13.0 L Lymphocytes % (Manual) 86.0 H Monocytes % (Manual) 1.0 L Neutrophils # (Manual) 4225 RBC Morphology See below Anisocytosis 1+ H Macrocytosis 1+ H PT INR Sodium 135 L Potassium 3.8 Chloride 100 Carbon Dioxide 30 BUN 18 H Creatinine 1.13 H Estimated GFR 49 L BUN/Creatinine Ratio 15.9 Glucose 104 Lactate 1.6 Calcium 8.9 Total Bilirubin 5.2 H AST 103 H ALT 35 H Alkaline Phosphatase 91 Total Creatine Kinase CK-MB (CK-2) CK-MB (CK-2) Rel Index Troponin I NT-Pro-B Natriuret Pep Total Protein 6.0 L Albumin 3.1 L Globulin 2.9 Albumin/Globulin Ratio 1.1 SARS-CoV-2 (PCR) 04/18/22 04/18/22 04/18/22 18:03 18:03 19:35 WBC RBC Hgb Hct MCV MCH MCHC RDW Plt Count Neut % (Auto) Lymph % (Auto) [place] % (Auto) Eos % (Auto) Baso % (Auto) Lymph # (Auto) [place] # (Auto) Baso # (Auto) Total Counted Seg Neutrophils % Lymphocytes % (Manual) Monocytes % (Manual) Neutrophils # (Manual) RBC Morphology Anisocytosis Macrocytosis PT 18.5 H INR 1.6 H Sodium Potassium Chloride Carbon Dioxide BUN Creatinine Estimated GFR BUN/Creatinine Ratio Glucose Lactate Calcium Total Bilirubin AST ALT Alkaline Phosphatase Total Creatine Kinase 34 CK-MB (CK-2) TNP CK-MB (CK-2) Rel Index TNP Troponin I < 0.012 NT-Pro-B Natriuret Pep 1230 H Total Protein Albumin Globulin Albumin/Globulin Ratio SARS-CoV-2 (PCR) Negative Assessment & Plan Assessment & Plan narrative: Congestive heart failure. Acute left heart. It is interesting as I review her last echo which was just a few months ago she really had pretty good function. Does not appear to be ischemic or have heart disease. And certainly does need diuresis by her chest x-ray. Was given IV Lasix in the ER. Will give 40 mil or mg in the morning. And will re-evaluate output. Otherwise seems to be doing well. Elevated white count. Etiology is unclear. Cultures have been done. Certainly clinically does not appear to be infected. Was given 1 dose of Rocephin and we can see what happens over the next 24 hours will review labs at clinic and see what her last numbers were. Certainly somewhat concerning for possible leukemia. Infection certainly is unclear but also with her abdominal complaints elevated bili could be abdominal. I do not think she has an ascending cholangitis. That would be highly unlikely without further symptoms. Patient does not look ill clinically. Has no abnormality on exam but we will watch closely. See how she does. Elevated bilirubin. Etiology is unclear. Patient is having a feeling of fullness in her abdomen. Does have a history of melanoma although I think it unlikely. At this point will obtain ultrasound 1st. May need CT scan of her abdomen. Will see what that shows. Re-evaluate in a.m. with labs. History of hypothyroidism. Stable. Will continue replacement. Disposition. Patient clearly will be here probably for the next 48 hours if not longer was to see how she responds to treatment and what we find in regards to multiple issues. Discussed with family. Greater than 35 minute spent with patient Time Spent With Patient Critical Care time: I spent a total of [] minutes of critical care time on this patient's care today; this time is exclusive of procedural time.
--- NOTE | 2022-04-18 21:18 | DI.US.S_ITS ---
PROCEDURE: US ABDOMEN COMPLETE INDICATIONS: increased biliruben TECHNIQUE: Real-time scanning was performed of the abdominal and retroperitoneal organs, with image documentation. COMPARISON: [facility], US, ABDOMEN COMPLETE, 01/27/2015, 10:31. [facility], CT, CT ABDOMEN PELVIS W CON, 08/29/2020, 11:09. FINDINGS: Liver: The liver demonstrates a nodular appearance. The main portal vein demonstrates normal size and demonstrates normal appearing, hepatopetal flow. Gallbladder: Sludge can be seen within the gallbladder lumen. The gallbladder wall is not thickened, measuring 3 mm or less. No specific pericholecystic fluid is seen. The sonographic Matute sign is negative. Biliary ducts: Intrahepatic bile ducts are non-dilated. Extrahepatic bile duct caliber measures 6 mm. Normal is 6-7 mm or less in diameter, or 10 mm or less post-cholecystectomy. Pancreas: Not seen, obscured by overlying bowel gas. Spleen: Spleen is normal in size and homogeneous in echotexture. Kidneys: Kidneys are normal in size and echotexture. Right kidney measures 10.2 cm long; left kidney measures 9.7 cm long. No hydronephrosis or nephrolithiasis. No solid masses. Aorta: Not seen, obscured by overlying bowel gas. Iliacs: Not seen, obscured by overlying bowel gas. IVC: Intrahepatic inferior vena cava is patent. Miscellaneous: There is moderate ascites. IMPRESSION: Cirrhotic appearing liver, without a focal liver abnormality seen by ultrasound. Sludge is seen within the gallbladder lumen, without additional gallbladder abnormality by ultrasound. Moderate ascites. Dictated by: Manjeet Ferris M.D. on 04/19/2022 at 11:45 Approved by: Manjeet Ferris M.D. on 04/19/2022 at 11:47
[2022-04-18] MEDS: ACETAMINOPHEN 325 MG TABLET 650 MG PO (23:33)
[2022-04-19] VITALS (7 sets, daily range): BP systolic 102–137; BP diastolic 49–63; PULSE 65–71; RESP 17–24; TEMP 36.2–36.8; O2SAT 92–97
[2022-04-19 05:21] LABS: Hematocrit 40.3 % (36-46); Hemoglobin 13.7 g/dL (12.0-16.0); Mean Corpuscular HGB Conc 34.1 % (30-36); Mean Corpuscular Hemoglobin 36.2 PG (26-34); Mean Corpuscular Volume 106.2 fL (80-100); Platelet Count 84 X10^3/uL (150-400); Red Cell Distribution Width 17.7 % (11.6-14.8); White Blood Cell Count 22.9 X10^3/uL (4.5-11.0)
[2022-04-19] MEDS: ACETAMINOPHEN 325 MG TABLET 650 MG PO ×4 (05:21→23:22)
[2022-04-19 05:25] LABS: Alanine Aminotransferase 32 IU/L (<35); Albumin 2.7 g/dL (3.5-5.0); Alkaline Phosphatase 68 U/L (38-126); Aspartate Aminotransferase 89 IU/L (14-36); BUN Creatinine Ratio 17.2 (6-22); Bilirubin Total 4.4 mg/dL (0.2-1.3); Blood Urea Nitrogen 16 mg/dL (7-17); Calcium 8.2 mg/dL (8.4-10.2); Carbon Dioxide 32 mmol/L (22-32); Chloride 101 mmol/L (98-107); Estimated Glomerular Filt Rate > 60 mL/min (>60); Globulin 2.7 g/dL (1.7-4.1); Glucose 84 mg/dL (80-110); HEMOLYSIS < 15 (0-50); Potassium 3.3 mmol/L (3.4-5.1); Sodium 138 mmol/L (137-145); Total Protein 5.4 g/dL (6.3-8.2)
[2022-04-19 05:28] LABS: Add Manual Diff / Slide Review YES
[2022-04-19 05:31] LABS: NT-proBNP (BNP-Adult 18+) 1280 pg/mL (<450)
[2022-04-19 07:18] LABS: Neutrophils Absolute Manual 8015 /uL (3000-5900); Total Cells Counted 100
[2022-04-19 07:20] LABS: Anisocytosis 2+; Macrocytosis 1+
[2022-04-19 07:21] LABS: Smudge Cells 2+
[2022-04-19] MEDS: LEVOTHYROXINE 100 MCG TABLET PO (08:23)
[2022-04-19] MEDS: ENOXAPARIN 40 MG/0.4 ML SYRINGE SUBCUT (08:23)
[2022-04-19] MEDS: POTASSIUM CHLORIDE 20 MEQ TAB 40 MEQ PO ×2 (08:23→17:19)
[2022-04-19] MEDS: FUROSEMIDE 40 MG/4 ML VIAL IV ×2 (08:24→12:44)
--- NOTE | 2022-04-19 08:30 | PM.PN.1 ---
Subjective Subjective Date Patient Seen: 04/19/22 Time Patient Seen: 08:30 Interval history: Patient seen in follow-up of multiple issues. Patient breathing not that much better. Does not feel that much different. No other changes. No abdominal pain. No nausea no vomiting. No fevers no chills. No cough. No other changes. Exam Vital Signs (past 8 hours): Oxygen Delivery Method Room Air Narrative Exam Narrative: Alert elderly female fatigued in appearance no acute distress HEENT exam mucous membranes moist neck supple without adenopathy JVD or bruits. Lungs show basic fine crackles at the base. Abdomen is soft positive bowel sounds still seem slightly distended extremities without cyanosis clubbing edema. Objective Labs Result Diagrams: 04/19/22 04:50 04/19/22 04:50 Labs: Laboratory Results - last 24 hr 04/18/22 04/18/22 04/18/22 18:03 18:03 18:03 WBC 32.5 H* RBC 3.96 L Hgb 14.6 Hct 42.1 MCV 106.4 H MCH 36.8 H MCHC 34.6 RDW 17.0 H Plt Count 92 L Neut % (Auto) Not Reportable Lymph % (Auto) Not Reportable [place] % (Auto) Not Reportable Eos % (Auto) Not Reportable Baso % (Auto) Not Reportable Lymph # (Auto) Not Reportable [place] # (Auto) Not Reportable Baso # (Auto) Not Reportable Total Counted 100 Seg Neutrophils % 13.0 L Lymphocytes % (Manual) 86.0 H Atypical Lymphs % Monocytes % (Manual) 1.0 L Eosinophils % (Manual) Neutrophils # (Manual) 4225 Smudge Cells RBC Morphology See below Anisocytosis 1+ H Macrocytosis 1+ H PT INR Sodium 135 L Potassium 3.8 Chloride 100 Carbon Dioxide 30 BUN 18 H Creatinine 1.13 H Estimated GFR 49 L BUN/Creatinine Ratio 15.9 Glucose 104 Lactate 1.6 Calcium 8.9 Total Bilirubin 5.2 H AST 103 H ALT 35 H Alkaline Phosphatase 91 Total Creatine Kinase CK-MB (CK-2) CK-MB (CK-2) Rel Index Troponin I NT-Pro-B Natriuret Pep Total Protein 6.0 L Albumin 3.1 L Globulin 2.9 Albumin/Globulin Ratio 1.1 Nasal Screen MRSA (PCR) SARS-CoV-2 (PCR) 04/18/22 04/18/22 04/18/22 18:03 18:03 19:35 WBC RBC Hgb Hct MCV MCH MCHC RDW Plt Count Neut % (Auto) Lymph % (Auto) [place] % (Auto) Eos % (Auto) Baso % (Auto) Lymph # (Auto) [place] # (Auto) Baso # (Auto) Total Counted Seg Neutrophils % Lymphocytes % (Manual) Atypical Lymphs % Monocytes % (Manual) Eosinophils % (Manual) Neutrophils # (Manual) Smudge Cells RBC Morphology Anisocytosis Macrocytosis PT 18.5 H INR 1.6 H Sodium Potassium Chloride Carbon Dioxide BUN Creatinine Estimated GFR BUN/Creatinine Ratio Glucose Lactate Calcium Total Bilirubin AST ALT Alkaline Phosphatase Total Creatine Kinase 34 CK-MB (CK-2) TNP CK-MB (CK-2) Rel Index TNP Troponin I < 0.012 NT-Pro-B Natriuret Pep 1230 H Total Protein Albumin Globulin Albumin/Globulin Ratio Nasal Screen MRSA (PCR) SARS-CoV-2 (PCR) Negative 04/18/22 04/19/22 04/19/22 22:00 04:50 04:50 WBC 22.9 H RBC 3.80 L Hgb 13.7 Hct 40.3 MCV 106.2 H MCH 36.2 H MCHC 34.1 RDW 17.7 H Plt Count 84 L Neut % (Auto) Not Reportable Lymph % (Auto) Not Reportable [place] % (Auto) Not Reportable Eos % (Auto) Not Reportable Baso % (Auto) Not Reportable Lymph # (Auto) Not Reportable [place] # (Auto) Not Reportable Baso # (Auto) Not Reportable Total Counted 100 Seg Neutrophils % 35.0 L D Lymphocytes % (Manual) 52.0 H Atypical Lymphs % 7.0 H Monocytes % (Manual) 4.0 Eosinophils % (Manual) 2.0 Neutrophils # (Manual) 8015 H Smudge Cells 2+ H RBC Morphology See below Anisocytosis 2+ H Macrocytosis 1+ H PT INR Sodium 138 Potassium 3.3 L Chloride 101 Carbon Dioxide 32 BUN 16 Creatinine 0.93 Estimated GFR > 60 BUN/Creatinine Ratio 17.2 Glucose 84 Lactate Calcium 8.2 L Total Bilirubin 4.4 H AST 89 H ALT 32 Alkaline Phosphatase 68 Total Creatine Kinase CK-MB (CK-2) CK-MB (CK-2) Rel Index Troponin I NT-Pro-B Natriuret Pep 1280 H Total Protein 5.4 L Albumin 2.7 L Globulin 2.7 Albumin/Globulin Ratio 1.0 Nasal Screen MRSA (PCR) Negative for mrsa SARS-CoV-2 (PCR) PFSH Medical History Hypothyroid Surgical History H/O: hysterectomy Social History household members: family Smoking Status: Former smoker alcohol intake: current Assessment & Plan Assessment & Plan narrative: Congestive heart failure. Appears to be acute left heart with pulmonary consolidation elevation of BNP. Will move be a more aggressive 40 mg b.i.d. IV and will recheck in a.m.. Hopefully she will be feeling better at that time and we can start to move in a different direction. With oral. Patient understands. Hypokalemia. Probably secondary to IV issues. Will place on 40 b.i.d. and recheck this evening. Follow from there. Elevated white count. Etiology still continues to be an issue. Reviewed previous white count from clinic which showed normal although it was last year. Drop significantly with treatment but unclear of etiology. Will give 1 more dose of Rocephin hopefully cultures will be returned will follow from there. Procalcitonin some and other indicators of infection are not positive so unclear what this represents but will continue at least another day. Elevated bilirubin. Continues to be unclear etiology. But maybe secondary to right heart failure. Again reviewed previous echo which really showed no evidence of significant issues cardiac gordon and at this point seems to be improved we are get an ultrasound today. And will follow from there. History of hypothyroidism. Stable. History of melanoma. No evidence of recurrence. Disposition. Clearly will be here at least another 24 if not 48 hours. Will have to clear up several issues. 30 minutes spent with patient. Dictating orders and explaining Time Spent With Patient Critical Care time: I spent a total of [] minutes of critical care time on this patient's care today; this time is exclusive of procedural time. Quality VTE Deep Vein Thrombosis/Pulmonary Embolism Present on Admission: No
--- NOTE | 2022-04-19 14:19 | CM.DANOTE ---
Addendum entered by RACHELLE Rincon 04/20/22 15:32: ADD: Per , pt's CT returned and looks to be cirrhosis and pt stable to d/c home today as pt does not want medical intervention and approach is comfort care. SW called [facility] and left [facility] for intake Neena updating on pt d/c to home today and inquiry if Info Visit with Dtr completed and when they have availability to open. D/C summary not yet available but SW left [facility] for CC Cuca to kindly fax d/c summary to [facility] in the AM. BF Original Note: Patient is an 82 yo female who was admitted on 04/18/22 for CHF. Pt has MCR and [employer] for insurance and her PCP is Dr. Hitesh Stephenson. EMR was reviewed. Per , pt with acute CHF and elevated white count with unknown etiology and to have IV-Abx for a few doses. Likely here 1-2 days and potential for underlying undx leukemia. Per RN, pt was able to ambulate to bathroom and complete oral and hygiene care fairly steady but could benefit from walker or cane for additional stability as pt tends to furniture surf while ambulating. No need for PT eval at this time. SW met bedside with pt, just missed Dtr Alisha, and explained role and pt confirms that she lives alone in [place] but states the past couple weeks while she has been more SOB she has been staying with her Dtr/DPOA Alisha in [place] for additional support and Dtr works but available for assist. Pt denies any hx of HH or SNF and preference is to d/c home with Dtr when medically stable. Pt does not anticipate any d/c needs at this time. Pt would prefer not to use walker or cane either but would be open to it if needed. Plan: SW to follow closely for any identified discharge planning needs and r/o HH and confirm safe plan of home with Dtr assist when medically stable. RACHELLE Rincon Discharge Planning/Care Management Advanced directive, confirm from FAMILY Start: 04/18/22 22:05 Freq: Q24H Status: Active Protocol: Document 04/18/22 22:05 TLS (Rec: 04/18/22 22:07 TLS [id number]) Advance Directive, confirm on record Time 22:06 Person contacted Alisha Calderón Copy received No CM Discharge Assessment Start: 04/19/22 12:23 Freq: Status: Active Protocol: Document 04/19/22 14:17 BF (Rec: 04/19/22 14:19 BF [id number]) Discharge Planning Assessment Assigned Student Services Vice President RACHELLE Sevilla DPOA/Assigned Designee Name Elisa Calderón Contact Information [phone] Advance Directives? Yes Advance Directives on File No History Provided By Patient,Family Member,Medical Record Has Patient been admitted in last 30 No days? Prior Living Arrangements House Household Members none Comment But has been staying with Elisa Brito in [place] Type of transporation used prior to Relies on Others admit Independent with ADL's Yes Is patient alert and oriented? Yes Needs Assistance With Home Chores / Shopping Caregiver for Another No Comment Furniture surfs for stability Comment r/o HH Barriers to Discharge No Discharge Plan Home Transportation Arrangement Dtreggie Brito to transport Referrals Initiated None needed Additional Comment follow to r/o HH Whiteboard Updated in Patient Room with Yes name and ext. # of Student Services Vice President Review Status In Process Please Provide Date Initial DC 04/19/22 Assessment Was Performed Next Review Type Continued Stay Review
[2022-04-19 16:39] LABS: BUN Creatinine Ratio 16.7 (6-22); Blood Urea Nitrogen 17 mg/dL (7-17); Calcium 8.4 mg/dL (8.4-10.2); Carbon Dioxide 29 mmol/L (22-32); Chloride 101 mmol/L (98-107); Estimated Glomerular Filt Rate 56 mL/min (>60); Glucose 93 mg/dL (80-110); HEMOLYSIS < 15 (0-50); Potassium 3.5 mmol/L (3.4-5.1); Sodium 137 mmol/L (137-145)
[2022-04-19] MEDS: cefTRIAXone 2,000 MG in SODIUM CHLORIDE 0.9% 100 ML 200 MG IV (19:38)
[2022-04-19] MEDS: PROPRANOLOL 10 MG TABLET 20 MG PO (20:42)
[2022-04-20 00:04] VITALS: BP 153/63; PULSE 65; RESP 19; TEMP 36.2; O2SAT 96
[2022-04-20 04:00] VITALS: BP 126/60; PULSE 62; RESP 16; TEMP 36.2; O2SAT 95
[2022-04-20 04:35] LABS: Hemoglobin 12.5 g/dL (12.0-16.0); Mean Corpuscular HGB Conc 34.7 % (30-36); Mean Corpuscular Hemoglobin 36.7 PG (26-34); Platelet Count 70 X10^3/uL (150-400); White Blood Cell Count 21.5 X10^3/uL (4.5-11.0)
[2022-04-20 04:38] LABS: Add Manual Diff / Slide Review YES
[2022-04-20 04:46] LABS: Alanine Aminotransferase 29 IU/L (<35); Albumin 2.5 g/dL (3.5-5.0); Alkaline Phosphatase 68 U/L (38-126); Aspartate Aminotransferase 83 IU/L (14-36); BUN Creatinine Ratio 18.2 (6-22); Bilirubin Total 3.8 mg/dL (0.2-1.3); Blood Urea Nitrogen 18 mg/dL (7-17); Calcium 8.3 mg/dL (8.4-10.2); Carbon Dioxide 27 mmol/L (22-32); Chloride 103 mmol/L (98-107); Estimated Glomerular Filt Rate 58 mL/min (>60); Globulin 2.5 g/dL (1.7-4.1); Glucose 76 mg/dL (80-110); HEMOLYSIS < 15 (0-50); Sodium 136 mmol/L (137-145)
[2022-04-20] MEDS: ACETAMINOPHEN 325 MG TABLET 650 MG PO ×2 (05:57→11:38)
[2022-04-20] MEDS: LEVOTHYROXINE 100 MCG TABLET PO (05:58)
[2022-04-20 07:12] LABS: Neutrophils Absolute Manual 5805 /uL (3000-5900); Total Cells Counted 100
[2022-04-20 07:13] LABS: Macrocytosis 1+
[2022-04-20 07:14] LABS: Anisocytosis 2+; Smudge Cells 2+
[2022-04-20] MEDS: PROPRANOLOL 10 MG TABLET 20 MG PO (08:51)
[2022-04-20] MEDS: POTASSIUM CHLORIDE 20 MEQ TAB 40 MEQ PO (08:52)
[2022-04-20 08:55] VITALS: BP 125/56; PULSE 74; RESP 16; TEMP 36.8; O2SAT 96
--- NOTE | 2022-04-20 08:59 | DI.CT.S_ITS ---
PROCEDURE: CT ABDOMEN PELVIS W CON INDICATIONS: ascites TECHNIQUE: After the administration of oral and intravenous contrast, axial sections were acquired from the lung bases to the pubic symphysis. Coronal and sagittal reformats were performed. For radiation dose reduction, the following was used: automated exposure control, adjustment of mA and/or kV according to patient size. COMPARISON:[facility], CR, XR CHEST 1V, 04/18/2022, 17:57. [facility], CT, CT ABDOMEN PELVIS W CON, 08/29/2020, 11:09. FINDINGS: Image quality: Excellent. Lung bases: There are large low-density pleural effusions which are partially characterized on this limited view of the chest. The left effusion is larger than the right. There is compressive atelectasis within the bilateral lung bases, greater on the left than on the right. Heart: No significant findings. ABDOMEN: Liver: The liver is diminutive in size with extensive surface nodularity suggesting cirrhotic transformation. This is a marked change from the comparison CT dated August 29, 2020. Gallbladder: The gallbladder is mildly distended. No gallbladder wall thickening or pericholecystic fluid. Biliary ducts: No intrahepatic biliary ductal dilatation. Pancreas: Unremarkable. Spleen: The spleen measures 12.4 cm in length. Punctate calcifications are present. Adrenal Glands: Unremarkable. Kidneys and Ureters: No hydronephrosis or nephrolithiasis. An intermediate density exophytic cyst is present off the midpole of the left kidney, unchanged from the [address] Stomach and Bowel: Stomach, small bowel loops, and colon are unremarkable. There are scattered sigmoid diverticula. No evidence for diverticulitis. The appendix is not visualized; however there is no discrete right lower quadrant fluid or fat stranding to suggest acute appendicitis. Peritoneum: There is a small amount of low-density free pelvic fluid and a moderate amount of perihepatic free fluid. Ventral Wall: No hernia. Abdominal Nodes: No retroperitoneal or mesenteric adenopathy by size criteria. Vessels: Aorta and inferior vena cava are normal in size. There are scattered atheromatous calcifications throughout the aorta and iliac arteries bilaterally. PELVIS: Pelvic Organs: Unremarkable. Bladder: Unremarkable. Pelvic Nodes: No enlarged lymph nodes. Miscellaneous: No inguinal hernias are seen. Bones: The bones have an overall heterogeneous appearance similar to the study dated August 29, 2020. No compression deformities. IMPRESSION: 1. Diminutive size of the liver and surface nodularity consistent with cirrhotic transformation. This is a new finding when compared with the prior CT dated in August 29, 2020. 2. Splenomegaly suggesting portal hypertension. 3. Large bilateral pleural effusions and compressive atelectasis, greater on the left than on the right. 4. Moderate amount of perihepatic and small amount of pelvic low-density free fluid. Dictated by: Hanna Love M.D. on 04/20/2022 at 10:29 Approved by: Hanna Love M.D. on 04/20/2022 at 10:36
[2022-04-20] MEDS: ONDANSETRON 4 MG/2 ML INJ IV (09:16)
[2022-04-20 09:19] VITALS: RESP 16; O2SAT 96
--- NOTE | 2022-04-20 15:04 | P.DS_ITS ---
History of Present Illness History of Present Illness Date Patient Seen: 04/20/22 Time Patient Seen: 08:50 Chief complaint: CHF, Dr Wants Admitted to get Water Off Her Narrative: Pt did ok overnight however this morning there is little improvement in her labs and appetite is still minimal at best. Extensive discussion with patient and MDM family at bedside they stated clear goal of going home given terminal nature of diagnosis. Discharge Providers Provider Date of admission: 04/18/22 20:12 Discharge Date: 04/20/22 Primary care physician: Hitesh Stephenson MD Discharge provider: Hitesh Stephenson MD Summary Hospital Course Discharge Diagnosis: #Cirrhosis with ascites and pulmonary effusions #hyperbilirubinemia #hypoalbuminemia #diastolic congestive heart failure present on admission #Hypokalemia #Elevated white count with lymphocytic predominance. #hypothyroidism Hospital Course: Mild improvement with CHF treatment and some antibiotics however imaging demonstrated moderate ascites and pulmonary effusions bilaterally evidently secondary to cirrhosis which we diagnosed with CT. Goals of care conversation resolved to go home establish with hospice patient and family agree. Exam Vital Signs (past 8 hours): - 04/20/22 08:55 04/20/22 09:19 Temperature 98.3 F Pulse Rate 74 Respiratory Rate 16 16 Blood Pressure 125/56 L Pulse Oximetry 96 96 Fraction of Inspired Oxygen 28 Oxygen Delivery Method Room Air Oxygen Flow Rate 0 Narrative Exam Narrative: frail tired elder snoozing in bed HENMT Head: atraumatic Eyes General: appearance normal, both eyes and all related structures Neck Neck: full ROM, trachea midline and supple Resp Auscultation: clear to auscultation bilaterally Percussion: percussion normal Cardio Rate: regular rate Rhythm: regular rhythm Other: 2+ pitting edema in calves bilaterally GI Other: distended normal bowel sounds mildly diffusely tender to palpation Skin Other: no lesions mild icterus Neuro General: patient alert, patient awake, moves all extremities and CN's II-XI intact bilaterally Psych Speech and Movement: speech and movement normal Objective Labs Result Diagrams: 04/20/22 04:03 04/20/22 04:03 Labs: Laboratory Results - last 24 hr 04/19/22 04/20/22 04/20/22 16:10 04:03 04:03 WBC 21.5 H RBC 3.40 L Hgb 12.5 Hct 36.0 MCV 106.0 H MCH 36.7 H MCHC 34.7 RDW 18.0 H Plt Count 70 L Neut % (Auto) Not Reportable Lymph % (Auto) Not Reportable [place] % (Auto) Not Reportable Eos % (Auto) Not Reportable Baso % (Auto) Not Reportable Lymph # (Auto) Not Reportable [place] # (Auto) Not Reportable Baso # (Auto) Not Reportable Total Counted 100 Seg Neutrophils % 27.0 L Lymphocytes % (Manual) 56.0 H Atypical Lymphs % 13.0 H Monocytes % (Manual) 4.0 Neutrophils # (Manual) 5805 Smudge Cells 2+ H RBC Morphology See below Anisocytosis 2+ H Macrocytosis 1+ H Sodium 137 136 L Potassium 3.5 4.0 Chloride 101 103 Carbon Dioxide 29 27 BUN 17 18 H Creatinine 1.02 0.99 Estimated GFR 56 L 58 L BUN/Creatinine Ratio 16.7 18.2 Glucose 93 76 L Calcium 8.4 8.3 L Total Bilirubin 3.8 H AST 83 H ALT 29 Alkaline Phosphatase 68 Total Protein 5.0 L Albumin 2.5 L Globulin 2.5 Albumin/Globulin Ratio 1.0 PFSH Medical History Hypothyroid Surgical History H/O: hysterectomy Social History household members: none Smoking Status: Former smoker alcohol intake: current Discharge Assessment & Plan Assessment and Plan Assessment: #Cirrhosis with ascites and pulmonary effusions New diagnosis today based on CT. consistent with lab reports. Extensive discussioni wtoday with pt and family MDM regarding goals of care they do not desire further treatment for this conditiont hey are aware of dismal prognosis. She would really like to go home to establish with hospice and f/u with palliative outpt. avoid tylenol/alcohol. #hyperbilirubinemia #hypoalbuminemia 2/2 above #diastolic congestive heart failure present on admission This doesn't seem to be active issue with little response to diuresis ok to stop torsemide #Hypokalemia much improved s/p repletion continue oral supplementation #Elevated white count with lymphocytic predominance. This does not appear to be infectious response in nature she is now s/p rocephin - improved yet still quite high. I suspect proliferative issue. Reviewed previous white count from clinic which showed normal although it was last year.? Drop significantly with treatment but unclear of etiology.? ?Monitor for now. #hypothyroidism stable continue home meds Disposition: home with hospice code: DNR diet: as tolerated Discharge Plan Discharge Plan Patient Disposition: Hospice - Home Discharge orders & Medications Prescriptions: Continued levothyroxine 100 mcg tablet 1 tab PO DAILY 0RF propranolol 20 mg tablet 20 mg PO BID 0RF potassium chloride 20 mEq tablet,ER particles/crystals 20 meq PO BID 0RF Label Comments: TAKE 2 TABLETS BY MOUTH EVERY DAY acetaminophen [Tylenol] 325 mg Capsule 650 mg PO Q4H PRN (Reason: Pain (Scale Score 4-6)) 0RF Discontinued torsemide 20 mg tablet 20 mg PO DAILY 0RF Label Comments: TAKE 1 TABLET BY MOUTH EVERY DAY Follow up/Referrals: Hitesh Stephenson MD [Primary Care Provider] - Diet/Activity/Treatments Diet: Diet as Tolerated Discharge Data Primary Care Provider: Hitesh Stephenson Quality VTE Deep Vein Thrombosis/Pulmonary Embolism Present on Admission: No
--- NOTE | 2022-04-20 15:32 | PC.NURSE ---
Patient discharged home, to be followed up by hospice. IV and tele removed. Patient A/Ox4, in no pain at time of discharge. Daughter at bedside. No questions or concerns about discharge. Will follow up with Dr. Stephenson if pain medication is needed.
== END 2022-04-20 15:33 | disposition hospice, home (50) | DRG 433 ==
LOC: ED 20:05 → ICU 04-19 07:21 → AC 04-22 10:30
PROVIDERS: Emergency Medicine; Admitting Provider Family Medicine; Emergency Provider Emergency Medicine; Family Provider Student in an Organized Health Care Education/Training Program; PCP Family Medicine; Referring Provider Emergency Medicine; Visit Provider Family Medicine
DX: K74.60 Unspecified cirrhosis of liver (principal); R18.8 Other ascites; I50.30 Unspecified diastolic (congestive) heart failure; J90 Pleural effusion, not elsewhere classified; D72.829 Elevated white blood cell count, unspecified; E80.6 Other disorders of bilirubin metabolism; E87.6 Hypokalemia; E03.9 Hypothyroidism, unspecified; Z66 Do not resuscitate; Z20.822 Contact with and (suspected) exposure to COVID-19; Z87.891 Personal history of nicotine dependence
CPT/HCPCS: 36415; 71045; 74177; 76700; 80048; 80053; 82550; 83605; 83880; 84484; 85007; 85025; 85610; 87040; 87635; 87797; 93005; 93010; 94760; 96365; 96375; 99284; C9803; J0696; J1650; J1940; J2405; Q9967